=== PATIENT | male | born 1960 | race Caucasian/White ===

== ENCOUNTER 2017-11-19 10:02 | Inpatient (IN) ==
[2017-11-19] MEDS ORDERED: ceFAZolin 2 GM Premix Inj 2 GM/50 ML PIGGYBACK IV.SIG ONE ×2 (10:07→11:00)
[2017-11-19] MEDS ORDERED: Diphtheria/Tetanus/Pertussis Vaccine Inj 0.5 ML Syringe IM ONE (10:07)
[2017-11-19 10:29] LABS: Baso # (Auto) 0.1 th/mm3 (0.0-0.2); Baso % (Auto) 0.4 % (0.0-2.0); Eos # (Auto) 0.3 th/mm3 (0.0-0.4); Eos % (Auto) 2.9 % (0.0-4.0); Hematocrit 36.1 % (39.0-51.0); Hemoglobin 11.9 gm/dL (13.0-17.0); Lymph # (Auto) 5.9 th/mm3 (1.0-4.8); Lymph % (Auto) 48.7 % (9.0-44.0); Mean Corpuscular HGB Conc 32.9 % (32.0-36.0); Mean Corpuscular Hemoglobin 29.5 pg (27.0-34.0); Mean Corpuscular Volume 89.8 fL (80.0-100.0); Mean Platelet Volume 6.7 fL (7.0-11.0); Mono # (Auto) 0.9 th/mm3 (0.0-0.9); Mono % (Auto) 7.3 % (0.0-8.0); Neut # (Auto) 4.9 th/mm3 (1.8-7.7); Neut % (Auto) 40.7 % (16.0-70.0); Platelet Count 230 th/mm3 (150-450); Red Blood Count 4.02 mil/mm3 (4.50-5.90); Red Cell Distribution Width 15.5 % (11.6-17.2)
[2017-11-19 10:41] LABS: Activated Partial Thrombo Time 28.2 sec (24.3-30.1); INR 1.1 Ratio; Prothrombin Time 10.8 sec (9.8-11.6)
[2017-11-19] MEDS ORDERED: fentaNYL Citrate Inj 250 MCG/5 ML Ampul ONE (10:42)
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
[2017-11-19] MEDS ORDERED: Phenylephrine/NS 1000 MCG/10ML Syringe IV.PUSH ONE (10:51)
[2017-11-19] MEDS ORDERED: Lidocaine PF 1% Inj 5 ML Syringe INFILTRATN ONE (10:51)
[2017-11-19] MEDS ORDERED: Succinylcholine Inj 100 MG/5 ML Syringe IV.PUSH ONE (10:51)
[2017-11-19] MEDS ORDERED: Sodium Chlor 0.9% Inj 500 ML IV.SIG ONE (10:51)
[2017-11-19] MEDS ORDERED: Neostigmine Inj 5 MG/5 ML Syringe IV.PUSH ONE (10:51)
[2017-11-19] MEDS ORDERED: Glycopyrrolate Inj 1 MG/5 ML Syringe IV.PUSH ONE (10:51)
[2017-11-19] MEDS ORDERED: Sodium Chlor 0.9% Inj 250 ML IV.SIG ONE (10:51)
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
[2017-11-19 10:57] LABS: Eosinophils 3 % (0-4); Lymphocytes 33 % (9-44); Monocytes 4 % (0-8)
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
[2017-11-19 10:58] LABS: Platelet Estimate Normal (Normal); Platelet Morphology Normal (Normal)
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
[2017-11-19 11:29] LABS: ABG Base Excess -2.3 mmol/L (-2-2); ABG PCO2 48 mmHg (38-42); ABG PO2 261 mmHG (61-120)
[2017-11-19] MEDS ORDERED: Bupivacaine/Epinephrine Inj 0.25% 50 ML Vial ONE (11:38)
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
[2017-11-19] MEDS ORDERED: Post-op Orders (for Pharmacy) OTHER STA (11:54)
[2017-11-19] MEDS ORDERED: Promethazine 25 MG Supp RECTAL PRN (11:54)
[2017-11-19] MEDS ORDERED: Lidocaine PF 1% Inj 5 ML Vial ONE (11:54)
[2017-11-19] MEDS ORDERED: Bisacodyl 10 MG Supp RECTAL PRN ×2 (11:54→14:17)
[2017-11-19] MEDS ORDERED: Morphine Inj 4 MG/ML Vial IV.PUSH PRN (11:54)
[2017-11-19] MEDS ORDERED: Bupivacaine PF 0.5% Inj 30 ML Vial ONE (11:54)
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
[2017-11-19] MEDS ORDERED: Post-op Orders (for Pharmacy) OTHER ONE (14:17)
[2017-11-19] MEDS ORDERED: Naloxone Inj 0.4 MG/ML Vial IV.PUSH PRN (14:17)
[2017-11-19] MEDS ORDERED: Clindamycin 600 mg/NS Premix 600 MG/50 ML PIGGYBACK IV.SIG SCH (14:30)
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
[2017-11-19] MEDS ORDERED: Vancomycin Inj 1,000 MG in Sodium Chlor 0.9% Inj 250 ML IV.SIG SCH (15:00)
[2017-11-19 15:25] LABS: Hematocrit 24.3 % (39.0-51.0); Hemoglobin 8.2 gm/dL (13.0-17.0); Mean Corpuscular HGB Conc 33.7 % (32.0-36.0); Mean Corpuscular Hemoglobin 30.2 pg (27.0-34.0); Mean Corpuscular Volume 89.8 fL (80.0-100.0); Mean Platelet Volume 6.4 fL (7.0-11.0); Platelet Count 111 th/mm3 (150-450); Red Blood Count 2.71 mil/mm3 (4.50-5.90); Red Cell Distribution Width 14.4 % (11.6-17.2); White Blood Count 4.7 th/mm3 (4.0-11.0)
[2017-11-19] MEDS: Sod Chloride 0.9% Inj 1,000 ML IV.CONT SCH ×2 (16:05→20:36)
[2017-11-19] MEDS: Gentamicin/NS 80 mg Premix 100 ML IV.SIG SCH ×2 (17:19→18:06)
[2017-11-19] MEDS: ceFAZolin Inj 2,000 MG in Sodium Chlor 0.9% Inj 80 ML IV.SIG SCH (17:19)
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
[2017-11-19] MEDS: Senna/Docusate Sodium 8.6/50 MG Tablet PO SCH (20:36)
[2017-11-19] MEDS ORDERED: Senna/Docusate Sodium 8.6/50 MG Tablet PO SCH (21:00)
[2017-11-19] MEDS: HYDROmorphone PF Inj 2 MG/ML Vial IV.PUSH PRN (22:09)
[2017-11-20] MEDS: Sod Chloride 0.9% Inj 1,000 ML IV.CONT SCH ×3 (00:49→11:00)
[2017-11-20] MEDS: ceFAZolin Inj 2,000 MG in Sodium Chlor 0.9% Inj 80 ML IV.SIG SCH ×3 (02:00→17:23)
[2017-11-20] MEDS: Gentamicin/NS 80 mg Premix 100 ML IV.SIG SCH ×3 (03:00→20:19)
[2017-11-20 04:54] LABS: Baso % (Auto) 0.5 % (0.0-2.0); Eos % (Auto) 0.1 % (0.0-4.0); Hematocrit 25.7 % (39.0-51.0); Hemoglobin 8.8 gm/dL (13.0-17.0); Lymph # (Auto) 1.1 th/mm3 (1.0-4.8); Lymph % (Auto) 17.9 % (9.0-44.0); Mean Corpuscular HGB Conc 34.4 % (32.0-36.0); Mean Corpuscular Hemoglobin 30.6 pg (27.0-34.0); Mean Platelet Volume 6.8 fL (7.0-11.0); Mono # (Auto) 0.3 th/mm3 (0.0-0.9); Mono % (Auto) 5.2 % (0.0-8.0); Neut # (Auto) 4.5 th/mm3 (1.8-7.7); Neut % (Auto) 76.3 % (16.0-70.0); Platelet Count 103 th/mm3 (150-450); Red Blood Count 2.89 mil/mm3 (4.50-5.90); Red Cell Distribution Width 14.9 % (11.6-17.2); White Blood Count 5.9 th/mm3 (4.0-11.0)
[2017-11-20 05:27] LABS: Albumin 2.2 g/dL (3.4-5.0); Anion Gap 7 meq/L (5-15); Aspartate Aminotransferase 47 U/L (15-37); Blood Urea Nitrogen 6 mg/dL (7-18); Calcium 7.4 mg/dL (8.5-10.1); Carbon Dioxide 24.6 meq/L (21.0-32.0); Chloride 107 meq/L (98-107); Glomerular Filtration Rate Greater Than 89 mL/min (>89); Glucose,Random 140 mg/dL (74-106); Potassium 4.3 meq/L (3.5-5.1); Sodium 139 meq/L (136-145)
[2017-11-20 05:28] LABS: Alanine Aminotransferase 18 U/L (12-78)
[2017-11-20 05:33] LABS: Alkaline Phosphatase 122 U/L (45-117); Total Protein 6.4 g/dL (6.4-8.2)
--- NOTE | 2017-11-20 07:06 | P.PNOP ---
Subjective Interval history: POD 1 s/p Left Above elbow Amputation doing well. states pain controlled. resting comfortably Physical Exam Vital signs: Vital Signs 11/19/17 12:39 11/19/17 12:45 11/19/17 13:00 Temperature 96.1 F L Pulse Rate 98 H 100 H 97 H Respiratory Rate 20 19 18 Blood Pressure 120/59 L 120/56 L 105/55 L Pulse Oximetry 100 100 99 11/19/17 13:15 11/19/17 14:00 11/19/17 16:00 Temperature 98.2 F 97.6 F 97.5 F L Pulse Rate 96 H 91 H 88 Respiratory Rate 15 11 L 13 Blood Pressure 99/53 L 102/49 L 95/67 L Pulse Oximetry 99 100 100 11/19/17 16:48 11/19/17 17:10 11/19/17 18:00 Temperature 98.7 F 98.7 F Pulse Rate 90 79 Respiratory Rate 12 12 Blood Pressure 87/52 L 91/62 L Pulse Oximetry 98 99 11/19/17 20:00 11/19/17 20:56 11/20/17 00:00 Temperature 99.0 F 98.7 F Pulse Rate 74 68 Respiratory Rate 11 L Blood Pressure 102/59 L 109/50 L Pulse Oximetry 100 99 100 11/20/17 04:00 Temperature 98.9 F Pulse Rate 72 Respiratory Rate 9 L Blood Pressure 99/58 L Pulse Oximetry 100 Intake & Output 11/19/17 11/20/17 11/20/17 18:59 06:59 18:59 Intake Total 6150 / 6150 2300 / 2300 Output Total 430 / 430 100 / 100 Balance 5720 / 5720 2200 / 2200 Weight 79.4 kg Intake: IV 150 / 150 2300 / 2300 NS Inj 1,000 ML @ 100 mls/hr IV 1999 / 1999 .CONT .Q10H [facility] Rx#:[id number] Gentamicin/NS 80 mg Premix 100 200 / 200 ML @ 200 mls/hr IV.SIG Q8H [facility] Rx#:[id number] Ancef 2 GM Premix Inj 2 gm In 50 / 50 50 ml @ 100 mls/hr IV.SIG ONCE ONE Rx#:[id number] Ancef Inj 2,000 MG In NS Inj 80 100 / 100 100 / 100 ML @ 200 mls/hr IV.SIG Q8H [facility] Rx#:[id number] Anesthesia Amount 5600 / 5600 Intake (Blood Product) Amt 400 / 400 Rbc As-3 Leukoreduced Unit 400 / 400 [id number] Output: Estimated Blood Loss 400 / 400 Urine Amount (Catheter) 100 / 100 Condom 100 / 100 Wound Drainage 30 30 # 1 Left Arm ALEX Drain Other: # Voids 2 Weight On Admission 79.4 kg Narrative: LUE: dressings clean and dry. intact. +drain - Urinary Catheter Management Condom Cath placed during this visit: no Results - Labs CBC & Chem 7: 11/20/17 04:29 11/20/17 04:29 Laboratory Results - last 24 hr 11/19/17 11/19/17 11/19/17 10:08 10:08 10:08 WBC 12.0 H RBC 4.02 L Hgb 11.9 L POC Hgb (Calc) 12.2 L Hct 36.1 L POC Hct 36.0 L MCV 89.8 MCH 29.5 MCHC 32.9 RDW 15.5 Plt Count 230 MPV 6.7 L Prelim Diff (Auto) Slide review pending Neut % (Auto) 40.7 Lymph % (Auto) 48.7 H Dewitt % (Auto) 7.3 Eos % (Auto) 2.9 Baso % (Auto) 0.4 Neut # (Auto) 4.9 Lymph # (Auto) 5.9 H Dewitt # (Auto) 0.9 Eos # (Auto) 0.3 Baso # (Auto) 0.1 WBC Differential Manual diff final Seg Neuts % (Manual) 59 Lymphocytes % (Manual) 33 Monocytes % (Manual) 4 Eosinophils % (Manual) 3 Basophils % (Manual) 1 Abs Neuts (Manual) 7.1 Differential Comment . Platelet Estimate Normal Platelet Morphology Normal PT 10.8 INR 1.1 APTT 28.2 Puncture Site Patient Temperature O2 Saturation ABG pH ABG pCO2 ABG pO2 ABG HCO3 ABG O2 Content ABG Base Excess ABG Methemoglobin Hemoglobin Carboxyhemoglobin O2 Delivery Device Inspired O2 Critical Value POC Sodium 138 Sodium POC Potassium 3.5 L Potassium POC Chloride 100 L Chloride Carbon Dioxide Anion Gap POC BUN 4 L BUN Creatinine POC Creatinine 0.6 Estimated GFR POC Glucose 133 H Random Glucose Calcium Prot Corrected Calcium Total Bilirubin AST ALT Alkaline Phosphatase Total Protein Albumin Blood Type Antibody Screen MTS Gel Crossmatch Bld Prod Order Comment 11/19/17 11/19/17 11/19/17 10:08 10:08 10:08 WBC RBC Hgb POC Hgb (Calc) Hct POC Hct MCV MCH MCHC RDW Plt Count MPV Prelim Diff (Auto) Neut % (Auto) Lymph % (Auto) Dewitt % (Auto) Eos % (Auto) Baso % (Auto) Neut # (Auto) Lymph # (Auto) Dewitt # (Auto) Eos # (Auto) Baso # (Auto) WBC Differential Seg Neuts % (Manual) Lymphocytes % (Manual) Monocytes % (Manual) Eosinophils % (Manual) Basophils % (Manual) Abs Neuts (Manual) Differential Comment Platelet Estimate Platelet Morphology PT INR APTT Puncture Site Patient Temperature O2 Saturation ABG pH ABG pCO2 ABG pO2 ABG HCO3 ABG O2 Content ABG Base Excess ABG Methemoglobin Hemoglobin Carboxyhemoglobin O2 Delivery Device Inspired O2 Critical Value POC Sodium Sodium POC Potassium Potassium POC Chloride Chloride Carbon Dioxide Anion Gap POC BUN BUN Creatinine POC Creatinine Estimated GFR POC Glucose Random Glucose Calcium Prot Corrected Calcium Total Bilirubin AST ALT Alkaline Phosphatase Total Protein Albumin Blood Type O Positive Antibody Screen Negative MTS Gel Crossmatch See Detail See Detail See Detail Bld Prod Order Comment 11/19/17 11/19/17 11/20/17 11:20 15:00 04:29 WBC 4.7 D 5.9 RBC 2.71 L 2.89 L Hgb 8.2 L D 8.8 L POC Hgb (Calc) Hct 24.3 L 25.7 L POC Hct MCV 89.8 89.0 MCH 30.2 30.6 MCHC 33.7 34.4 RDW 14.4 14.9 Plt Count 111 L D 103 L MPV 6.4 L 6.8 L Prelim Diff (Auto) Neut % (Auto) 76.3 H Lymph % (Auto) 17.9 Dewitt % (Auto) 5.2 Eos % (Auto) 0.1 Baso % (Auto) 0.5 Neut # (Auto) 4.5 Lymph # (Auto) 1.1 Dewitt # (Auto) 0.3 Eos # (Auto) 0.0 Baso # (Auto) 0.0 WBC Differential . Seg Neuts % (Manual) Lymphocytes % (Manual) Monocytes % (Manual) Eosinophils % (Manual) Basophils % (Manual) Abs Neuts (Manual) Differential Comment Auto diff final Platelet Estimate Platelet Morphology PT INR APTT Puncture Site Art line Patient Temperature 98.6 O2 Saturation 97 ABG pH 7.30 L ABG pCO2 48 H ABG pO2 261 H ABG HCO3 23 ABG O2 Content 14.5 ABG Base Excess -2.3 L ABG Methemoglobin 1.3 Hemoglobin 10.2 L Carboxyhemoglobin 1.5 O2 Delivery Device Ventilator Inspired O2 50 Critical Value No POC Sodium Sodium POC Potassium Potassium POC Chloride Chloride Carbon Dioxide Anion Gap POC BUN BUN Creatinine POC Creatinine Estimated GFR POC Glucose Random Glucose Calcium Prot Corrected Calcium Total Bilirubin AST ALT Alkaline Phosphatase Total Protein Albumin Blood Type Antibody Screen MTS Gel Crossmatch Bld Prod Order Comment 11/20/17 04:29 WBC RBC Hgb POC Hgb (Calc) Hct POC Hct MCV MCH MCHC RDW Plt Count MPV Prelim Diff (Auto) Neut % (Auto) Lymph % (Auto) Dewitt % (Auto) Eos % (Auto) Baso % (Auto) Neut # (Auto) Lymph # (Auto) Dewitt # (Auto) Eos # (Auto) Baso # (Auto) WBC Differential Seg Neuts % (Manual) Lymphocytes % (Manual) Monocytes % (Manual) Eosinophils % (Manual) Basophils % (Manual) Abs Neuts (Manual) Differential Comment Platelet Estimate Platelet Morphology PT INR APTT Puncture Site Patient Temperature O2 Saturation ABG pH ABG pCO2 ABG pO2 ABG HCO3 ABG O2 Content ABG Base Excess ABG Methemoglobin Hemoglobin Carboxyhemoglobin O2 Delivery Device Inspired O2 Critical Value POC Sodium Sodium 139 POC Potassium Potassium 4.3 POC Chloride Chloride 107 Carbon Dioxide 24.6 Anion Gap 7 POC BUN BUN 6 L Creatinine 0.65 POC Creatinine Estimated GFR Greater than 89 POC Glucose Random Glucose 140 H Calcium 7.4 L* Prot Corrected Calcium 7.8 L Total Bilirubin 0.9 AST 47 H ALT 18 Alkaline Phosphatase 122 H Total Protein 6.4 Albumin 2.2 L Blood Type Antibody Screen MTS Gel Crossmatch Bld Prod Order Comment - Imaging Impressions Radius/Ulna X-Ray 11/19/17 00:00 CONCLUSION: Fracture dislocation at the elbow and wrist with fractures of the distal humerus , proximal radius and ulna and distal radius and ulna. This is an incomplete evaluation of the hand. Chest X-Ray 11/19/17 10:05 CONCLUSION: Right lung base is obscured by over lying hand. Fractured right clavicle No evidence of pneumothorax or cardiac mediastinal injury. Pelvis X-Ray 11/19/17 10:05 CONCLUSION: Negative for fracture or dislocation Abdomen/Pelvis CT 11/19/17 10:14 CONCLUSION: 1. Extensive vascular calcifications vena cava filter 2. Moderate motion artifact. No definite solid organ injury. Chest CT 11/19/17 10:14 CONCLUSION: 1. Negative for acute traumatic injury. 2. There is no pneumothorax. 3. Minimal nonspecific mediastinal adenopathy. Cervical Spine CT 11/19/17 10:15 CONCLUSION: 1. Degenerative changes as above without fracture. The most significant degenerative changes are at C5-C6 and C6-C7. Head CT 11/19/17 10:15 CONCLUSION: 1. Negative for acute process . 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 Acute pain exception. This patient has normal, predicted, physiological, and time limited response to an adverse mechanical stimulus associated with surgery, trauma, or acute illness as described in my notes. There is a lack of alternative treatment options other than to include the prescribed narcotic treatment for this condition.
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
[2017-11-20] MEDS: HYDROmorphone PF Inj 2 MG/ML Vial IV.PUSH PRN ×3 (08:28→17:27)
[2017-11-20] MEDS: Senna/Docusate Sodium 8.6/50 MG Tablet PO SCH ×2 (10:23→21:54)
[2017-11-20] MEDS: Enoxaparin Inj 40 MG/0.4 ML Syringe SQ SCH (12:41)
[2017-11-20] MEDS: Gabapentin 300 MG Capsule PO SCH ×2 (12:46→17:25)
[2017-11-20] MEDS: Lisinopril 5 MG Tablet PO SCH (12:46)
--- NOTE | 2017-11-20 13:30 | ECG ---
Date Performed: 11/19/2017 Time Performed: 16:36:42 PTAGE: 89 years EKG: Sinus rhythm . Possible WPW pattern Generalized low QRS voltages Abnormal ECG NO PREVIOUS TRACING DOCTOR: Negro Coombs Interpretating Date/Time 11/20/2017 13:28:54
--- NOTE | 2017-11-20 14:45 | ECHRPT ---
Indication: cardiomyopathy CONCLUSIONS Normal left ventricular size. Mild concentric left ventricular hypertrophy. The left ventricular systolic function is severely reduced with an estimated ejection fraction in th e range of 30-35%. Due to limited echocardiographic window visualization, regional wall motion abnormalities cannot be excluded. There is noted akinesis of the LV apex, mid to apical septam, and mid to apical anterior w all with otherwise global hypokinesis of visualized LV wall segments. There is a possible left ventricular apical thrombus noted. Definity contrast enhanced echocardiogra m versus CT imaging recommended for further evaluation. Mild mitral valve regurgitation. BP: / HR: Rhythm: MEASUREMENTS (Male / Female) Normal Values Technical Quality:Fair 2D ECHO LV Diastolic Diameter PLAX 5.7 cm 4.2 - 5.9 / 3.9 - 5.3 cm LV Systolic Diameter PLAX 4.7 cm IVS Diastolic Thickness 1.4 cm 0.6 - 1.0 / 0.6 - 0.9 cm LVPW Diastolic Thickness 1.2 cm 0.6 - 1.0 / 0.6 - 0.9 cm LV Relative Wall Thickness 0.5 LVOT Diameter 2.2 cm Aortic Root Diameter 2.6 cm LA Systolic Diameter LX 3.9 cm 3.0 - 4.0 / 2.7 - 3.8 cm M-MODE AV Cusp Separation MM 2.3 cm DOPPLER AV Peak Velocity 120.0 cm/s AV Peak Gradient 5.8 mmHg LVOT Peak Velocity 94.3 cm/s LVOT Peak Gradient 3.6 mmHg AV Area Cont Eq pk 3.0 cm Mitral E Point Velocity 67.1 cm/s Mitral A Point Velocity 64.2 cm/s Mitral E to A Ratio 1.0 LV E' Lateral Velocity 13.7 cm/s Mitral E to LV E' Lateral Ratio 4.9 LV E' Septal Velocity 10.0 cm/s Mitral E to LV E' Septal Ratio 6.7 TR Peak Velocity 80.5 cm/s TR Peak Gradient 2.6 mmHg Right Atrial Pressure 5.0 mmHg Pulmonary Artery Systolic Pressu 7.6 mmHg Right Ventricular Systolic Press 7.6 mmHg PV Peak Velocity 81.4 cm/s PV Peak Gradient 2.7 mmHg FINDINGS LEFT VENTRICLE Normal left ventricular size. Mild concentric left ventricular hypertrophy. The left ventricular systolic function is severely reduced with an estimated ejection fraction in th e range of 30-35%. There is noted akinesis of the LV apex, mid to apical septam, and mid to apical anterior wall with o therwise global hypokinesis of visualized LV wall segments. There is a possible left ventricular apical thrombus noted. RIGHT VENTRICLE Normal right ventricular size and systolic function. LEFT ATRIUM The left atrial size is normal. RIGHT ATRIUM The right atrial size is normal. ATRIAL SEPTUM Normal atrial septal thickness without atrial level shunting by limited color doppler interrogation. AORTA The aortic root and proximal ascending aorta are normal in size on limited imaging. MITRAL VALVE Structurally normal mitral valve. Mild thickening of the mitral valve leaflets. Mild mitral valve regurgitation. AORTIC VALVE Trileaflet aortic valve. Aortic valve sclerosis is present. No aortic valve stenosis or regurgitation. TRICUSPID VALVE Structurally normal tricuspid valve. No tricuspid valve stenosis or regurgitation. PULMONARY VALVE No pulmonary valve regurgitation or stenosis. VESSELS The inferior vena cava is normal in size. PERICARDIUM No pericardial effusion. Jose Moore (Electronically Signed) Final Date:20 November 2017 14:44
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
[2017-11-20] MEDS ORDERED: Dextrose 50% in Water 50 ML Vial IV.PUSH PRN (16:16)
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
[2017-11-20] MEDS: Insulin NovoLOG Aspart Correctional Sugar Inj SQ SCH ×2 (19:19→21:56)
[2017-11-20] MEDS: Furosemide 40 MG Tablet PO SCH (21:53)
[2017-11-21] MEDS: HYDROmorphone PF Inj 2 MG/ML Vial IV.PUSH PRN ×5 (01:09→16:40)
[2017-11-21] MEDS: ceFAZolin Inj 2,000 MG in Sodium Chlor 0.9% Inj 80 ML IV.SIG SCH ×3 (01:10→17:13)
[2017-11-21] MEDS: Gentamicin/NS 80 mg Premix 100 ML IV.SIG SCH ×2 (03:00→11:09)
--- NOTE | 2017-11-21 06:59 | P.PNOP ---
Subjective Interval history: POD 2 s/p amputation of left arm reports significant pain overnight. patient on chronic suboxone outpatient Physical Exam Vital signs: Vital Signs 11/20/17 08:00 11/20/17 08:15 11/20/17 08:16 Temperature 98.3 F Pulse Rate 62 Respiratory Rate 13 Blood Pressure 103/56 L Pulse Oximetry 100 100 100 11/20/17 09:00 11/20/17 12:00 11/20/17 16:00 Temperature 97.6 F 98.3 F Pulse Rate 62 72 84 Respiratory Rate 13 12 Blood Pressure 97/59 L 135/62 Pulse Oximetry 100 100 11/20/17 20:00 11/20/17 20:15 11/20/17 22:00 Temperature 98.4 F Pulse Rate 69 66 Respiratory Rate 10 L Blood Pressure 103/53 L Pulse Oximetry 100 100 11/21/17 00:00 11/21/17 02:00 11/21/17 04:00 Temperature 98.2 F 98 F Pulse Rate 70 65 73 Respiratory Rate 10 L 12 Blood Pressure 95/55 L 92/55 L Pulse Oximetry 98 11/21/17 06:00 Temperature Pulse Rate 76 Respiratory Rate Blood Pressure Pulse Oximetry Intake & Output 11/20/17 11/20/17 11/21/17 06:59 18:59 06:59 Intake Total 2300 / 2300 600 / 600 2730 / 2730 Output Total 100 / 100 3510 / 3510 Balance 2200 / 2200 600 / 600 -780 / -780 Intake: IV 2300 / 2300 600 / 600 300 / 300 NS Inj 1,000 ML @ 50 mls/hr IV. 1999 / 1999 400 / 400 CONT .Q20H NASEEM Rx#:[id number] Gentamicin/NS 80 mg Premix 100 200 / 200 100 / 100 100 / 100 ML @ 200 mls/hr IV.SIG Q8H NASEEM Rx#:[id number] Ancef Inj 2,000 MG In NS Inj 80 100 / 100 100 / 100 200 / 200 ML @ 200 mls/hr IV.SIG Q8H NASEEM Rx#:[id number] Oral 1230 / 1230 Other 1200 / 1200 Output: Urine 2100 / 2100 Estimated Blood Loss 200 / 200 Urine Amount (Catheter) 100 / 100 1150 / 1150 Condom 100 / 100 1150 / 1150 Wound Drainage 60 / 60 # 1 Left Arm ALEX Drain 60 / 60 Other: # Incontinent Voids 1 # Bowel Movements 0 Narrative: LUE: dressing clean and dry. intact. +Drain - Urinary Catheter Management Condom Cath placed during this visit: no Results - Labs CBC & Chem 7: 11/21/17 04:27 11/20/17 04:29 Laboratory Results - last 24 hr 11/20/17 11/20/17 11/20/17 15:44 17:34 21:49 Hgb Hct POC Glucose 185 H 144 H 158 H 11/21/17 04:27 Hgb 8.0 L Hct 24.0 L POC Glucose Assessment and Plan - Assessment and Plan 1) Left Arm Traumatic near amputation with conversion to above elbow amputation - POD 2 -maintain dressings and drain -NWB -will change dressing POD 3 at bedside -due to pain, will change pain scale inpatient to percocet 7.5 scale 3-6, percocet 10 scale 7-10, dilaudid 2mg for breakthrough -patient on chronic suboxone outpatient from pain mgmt. will give one time Rx of percocet 10 for DC and then refer to pain mgmt for further refills -f/u with nayana or DIANE in 2 weeks E-FORE Prescription Drug Monitoring Database has been queried and verified prior to prescribing the controlled substance. Acute pain exception. This patient has normal, predicted, physiological, and time limited response to an adverse mechanical stimulus associated with surgery, trauma, or acute illness as described in my notes. There is a lack of alternative treatment options other than to include the prescribed narcotic treatment for this condition.
[2017-11-21] MEDS: Sod Chloride 0.9% Inj 1,000 ML IV.CONT SCH (09:08)
[2017-11-21] MEDS: Enoxaparin Inj 40 MG/0.4 ML Syringe SQ SCH (09:09)
[2017-11-21] MEDS: Furosemide 40 MG Tablet PO SCH ×2 (09:09→20:43)
[2017-11-21] MEDS: Gabapentin 300 MG Capsule PO SCH ×3 (09:09→17:12)
[2017-11-21] MEDS: Senna/Docusate Sodium 8.6/50 MG Tablet PO SCH ×2 (09:10→20:43)
[2017-11-21] MEDS: Lisinopril 5 MG Tablet PO SCH (09:10)
[2017-11-21] MEDS: Insulin NovoLOG Aspart Correctional Sugar Inj SQ SCH ×4 (09:12→20:58)
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
[2017-11-22] MEDS: ceFAZolin Inj 2,000 MG in Sodium Chlor 0.9% Inj 80 ML IV.SIG SCH ×2 (02:28→12:45)
[2017-11-22] MEDS: HYDROmorphone PF Inj 2 MG/ML Vial IV.PUSH PRN ×3 (02:37→12:43)
[2017-11-22] MEDS: oxyCODONE/Acetaminophen 10/325 Tablet PO PRN ×2 (04:30→08:02)
[2017-11-22 06:02] LABS: Baso % (Auto) 0.1 % (0.0-2.0); Eos # (Auto) 0.1 th/mm3 (0.0-0.4); Hematocrit 27.7 % (39.0-51.0); Hemoglobin 9.4 gm/dL (13.0-17.0); Lymph # (Auto) 2.3 th/mm3 (1.0-4.8); Lymph % (Auto) 37.4 % (9.0-44.0); Mean Corpuscular HGB Conc 33.9 % (32.0-36.0); Mean Corpuscular Volume 88.6 fL (80.0-100.0); Mean Platelet Volume 6.9 fL (7.0-11.0); Mono # (Auto) 0.2 th/mm3 (0.0-0.9); Mono % (Auto) 3.9 % (0.0-8.0); Neut # (Auto) 3.4 th/mm3 (1.8-7.7); Neut % (Auto) 56.6 % (16.0-70.0); Platelet Count 138 th/mm3 (150-450); Red Blood Count 3.13 mil/mm3 (4.50-5.90); Red Cell Distribution Width 14.7 % (11.6-17.2); White Blood Count 6.1 th/mm3 (4.0-11.0)
[2017-11-22 06:35] LABS: Alanine Aminotransferase 10 U/L (12-78); Albumin 2.4 g/dL (3.4-5.0); Alkaline Phosphatase 149 U/L (45-117); Anion Gap 10 meq/L (5-15); Aspartate Aminotransferase 38 U/L (15-37); Blood Urea Nitrogen 5 mg/dL (7-18); Calcium 7.8 mg/dL (8.5-10.1); Carbon Dioxide 32.5 meq/L (21.0-32.0); Chloride 97 meq/L (98-107); Glomerular Filtration Rate Greater Than 89 mL/min (>89); Glucose,Random 138 mg/dL (74-106); Potassium 3.7 meq/L (3.5-5.1); Sodium 139 meq/L (136-145); Total Protein 7.3 g/dL (6.4-8.2)
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
[2017-11-22] MEDS: Senna/Docusate Sodium 8.6/50 MG Tablet PO SCH ×2 (08:04→21:51)
[2017-11-22] MEDS: Furosemide 40 MG Tablet PO SCH ×2 (08:04→21:50)
[2017-11-22] MEDS: Gabapentin 300 MG Capsule PO SCH ×3 (08:04→21:48)
[2017-11-22] MEDS: Insulin NovoLOG Aspart Correctional Sugar Inj SQ SCH ×4 (08:07→21:57)
[2017-11-22] MEDS: Lisinopril 5 MG Tablet PO SCH (08:08)
[2017-11-22] MEDS ORDERED: Chlorhexidine Gluconate 2% 1 Pack (2 Cloths) TOPICAL SCH (08:45)
[2017-11-22] MEDS ORDERED: Mupirocin 2% Nasal Oint Topical Syringe EACH NARE SCH (08:45)
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
[2017-11-22] MEDS: Enoxaparin Inj 40 MG/0.4 ML Syringe SQ SCH (12:16)
[2017-11-22] MEDS ORDERED: Vancomycin Inj 1,000 MG in Sodium Chlor 0.9% Inj 250 ML IV.SIG SCH (16:00)
[2017-11-22] MEDS ORDERED: ceFAZolin 2 GM Premix Inj 2 GM/50 ML PIGGYBACK IV.SIG SCH (16:00)
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
[2017-11-22] MEDS ORDERED: Sod Chloride 0.9% Inj 1,000 ML IV.SIG ONE (17:45)
[2017-11-22] MEDS ORDERED: Sodium Chlor 0.9% Inj 250 ML ONE (18:21)
--- NOTE | 2017-11-22 19:07 | CATHPROC ---
Patient Name: Iggy Calle Study #: [id number] Initial MD: Martin Rodriguez Date of : 1960 Study Date: 11/22/2017 Cardiac Catheterization Report 11/23/2017 4:10:47 PM Financial #: [id number] 1 of 9 Patient Name: Iggy Calle Study #: [id number] Initial MD: Martin Rodriguez Date of : 1960 Study Date: 11/22/2017 Entire Case Report Patient Information Patient Name Iggy Calle Date of 1960 Age 57 years Financial # [id number] Gender M AlternateID Lab Number 6 Room Number 1624 Height (in) 68.0 Height (cm) 172.7 BSA 1.94 Weight (lbs) 175.7 Weight (kg) 79.9 Patient Address/Phone Number Home Address [facility] Home Phone Number [address] [address] Study Information Study Number Admission Scheduled Start Study Start [id number] Nov 19 2017 10:41AM 11/22/2017 Nov 22 2017 5:16PM Electra Service Cardiac Pacer/ICD Admit Source Facility Department Emergency department [facility] Department Manager Physician and Clinical Staff Initial Martni Diaz Picture Framer Pedrito Coyne,RT(R) Other Anesthesia, CRAB PICKER Recorder Adali Singh,PROMISE Recorder Rebeka Perry BSN Recorder Gladys Farmer RN Scrub Ashely Velasquez,DAYNA Procedures Performed Procedure Lead Insertion 11/23/2017 4:10:47 PM Financial #: [id number] 2 of 9 Patient Name: Iggy Calle Study #: [id number] Initial MD: Martin Rodriguez Date of : 1960 Study Date: 11/22/2017 Equipment Time Manager Community Relations Description Size Mfg Part Number Used/Scraped 18:47 BIOTRONIK DEFIBRILLATOR, ILIVIA 7 DR-T [id number] Used 18:37 BIOTRONIK LEAD, PLEXA PRO-MRI SD /18 [id number] Used 18:40 BIOTRONIK LEAD, SOLIA 60 53 PRO MRI * [id number] Used [id number] 17:20 MEDLINE Carnival BLANKET,WARM AIR CCL * Used *[id number] TP-1103 17:20 MEDLINE INDUSTRIES SUTURE, STRIP PLUS 1/2" * Used *[id number] 17:20 MEDLINE PACER ADHESIVE, MASTISOL 2/3CC 2/3CC 0523-48 Used 17:20 MEDLINE PACER SANCHEZ, LIMB * 2530 *[id number] Used [id number] 17:20 MEDLINE PACER PACK, PACER CUSTOM * Used *[id number] 17:20 MEDLINE PACER PEN, SKIN DUAL W/ RULER * Used *[id number] 18:02 docBeat PACER SAFE SHEATH, FR8, 13CM FR 8 CLS-1008 Used 18:42 docBeat PACER SAFE SHEATH, FR8, 13CM FR 8 CLS-1008 Used 18:16 Needle Sponge Count 2 2 Used 18:16 Needle Sponge Count 2 22 Used 19:02 Needle Sponge Count 3 3 Used 18:16 Needle Sponge Count 30 1 Used [id number] *62825 SUTURE, 3-0 VICRYL [SH] ([id number]) SUTURE, 3-0 VICRYL [SH] (AIA595K) SUTURE, 4-0 MONOCRYL [PS2] (Y496G) [facility] PAD, ELECTROSURGICAL 17:20 * [id number] *[id number] Used SURGICAL GROUNDING ORANGE [id number] 17:20 ZOLL [employer] SHELLI. / * Used *94062 Equipment Model, Serial, Lot Number and Expiration Data Description Model Number Serial Number Lot Number Expiration Date DEFIBRILLATOR, ILIDAMIEN 7 HUGO [id number] 04-11-2018 LEAD, PLEXA PRO-MRI [place] [id number] 05-10-2019 LEAD, SOLIA 60 53 PRO MRI [id number] 09-09-2019 11/23/2017 4:10:47 PM Financial #: [id number] 3 of 9 Patient Name: Iggy Calle Study #: [id number] Initial MD: Martin Rodriguez Date of : 1960 Study Date: 11/22/2017 Insurance Information Insurance Payor Medicare Third Constitution Party Third Constitution Party Number [facility] [place] [facility] History: Allergies Allergy Reaction No Allergy Information Available History: Risk Factors Hypertension Yes Cerebrovascular Diabetes Disease Labs Hgb (g/dl) Hct (%) WBC (l/cumm) Platelets (thousands) 11.60-17.00 35.00-51.00 4.00-11.00 150.00-450.00 9.4 27.7 6.1 138 Glucose (mg/dl) BUN (mg/dl) Creatinine (mg/dl) BUN:Creatinine (1:x) 74.00-106.00 7.00-18.00 0.50-1.30 10.00-20.00 122 5 0.8 6.3 Na (meq/l) K (meq/l) 136.00-145.00 3.50-5.10 139 3.7 INR (PTT:PT) 0.90-1.10 1.1 Medication Medication Total Dose (Bolus/Oral) Medication Total Dosage/Unit 2% XYLOCAINE 40 mL Medications (Bolus/Oral) Medication Time Given Dosage/Unit Administered By Reason 2% XYLOCAINE 11/22/2017 6:25:44 PM 40 mL Martin Rodriguez 40 mL 2% XYLOCAINE given in lab by Martin Rodriguez in Left shoulder via Subcutaneous. Ordered by Martin Rodriguez. 11/23/2017 4:10:47 PM Financial #: [id number] Patient Name: Iggy Calle Study #: [id number] Initial MD: Martin Rodriguez Date of : 1960 Study Date: 11/22/2017 Medication (Drip) Medication Time Given Dosage/Unit Concentration/Unit Diluent (ml) Solution ANCEF 11/22/2017 6:22:06 PM 2 g 2 g ANCEF given in lab by Radha, CRAB PICKER via Peripheral IV. Ordered by Martin Rodriguez. Reason: As per physicians verbal order. VANCOMYCIN DRIP 11/22/2017 5:51:50 PM 1 g 1 g VANCOMYCIN DRIP given in lab by Rebeka Perry BSN in Right Antecubital via Peripheral IV. Ordered by Martin Rodriguez. Reason: As per physicians verbal order. Initial Case Assessment Cardiovascular HR Rhythm NIBP 97 NSR 78/54 Edema Present Skin color Skin None Normal Warm Dry Circulatory - Right Pulses Dorsalis Pedis 1 Scale (0,1,2,3,4,d) Circulatory - Left Pulses Dorsalis Pedis 1 Scale (0,1,2,3,4,d) Circulatory - Lower Extremities Color Lower Right Color Lower Left Normal Normal Neurological State Oriented to time-place- Alert Moves all extremities person Respiration - General Respiration Rate SpO2 (%) (B/min) 16 99 11/23/2017 4:10:47 PM Financial #: [id number] 5 of 9 Patient Name: Iggy Calle Study #: [id number] Initial MD: Martin Rodriguez Date of : 1960 Study Date: 11/22/2017 Final Case Assessment Cardiovascular HR Rhythm NIBP Chest Pain 65 SR 124/65 0 Edema Present Skin color Skin None Normal Warm Dry Circulatory - Right Pulses Dorsalis Pedis 1 Scale (0,1,2,3,4,d) Circulatory - Left Pulses Dorsalis Pedis 1 Scale (0,1,2,3,4,d) Neurological State Oriented to time-place- Alert Moves all extremities person Respiration - General Respiration Rate SpO2 (%) O2 (lpm) (B/min) 18 100 4 Chronological Log Time Study Chronological Log 17:40:26 Patient arrived via Bed. 17:40:27 Patient Name, D.O.B, / Armband Verified By R.N. 17:40:27 Consent signed by the physician and the patient and verified by the [facility] Department Manager staff. 17:40:28 Pre-op and post- op instructions given; patient acknowledges understanding of instructions. 17:40:29 Anesthesia at bedside. Assumes care of patient. 17:40:30 Patient has been NPO for More than 6Hrs. 17:40:31 Skin Breakdown- well documented in record see EMR 17:43:34 Jacob Prominences Protected 17:45:33 Disposable Defibrillator Pads Placed On Patient. 11/23/2017 4:10:47 PM Financial #: [id number] 6 of 9 Patient Name: Iggy Calle Study #: [id number] Initial MD: Martin Rodriguez Date of : 1960 Study Date: 11/22/2017 Assessment: Initial Case, HR=97 BPM, Rhythm=NSR, NIBP=78/54 mmhg, Edema=None, Color=Normal, Ski n = Warm, Dry Right Pulses: Patrick Ped=1 Left Pulses: Patrick Ped=1 17:45:51 Lower Right Extremities: Color=Normal Lower Left Extremities: Color=Normal Neurological: State=Alert, Ox3, SANDOVAL Respiration: Resp=16 B/min, SpO2=99 % 17:47:00 2% CHLORHEXIDINE GLUCONATE WASH AND NASAL SWIPE DONE PRIOR TO PROCEDURE. 17:50:32 Patient Warmer Placed on the Table. 17:51:38 Bovie ground pad applied to: right thigh 1 g VANCOMYCIN DRIP given in lab by Rebeka Perry BSN in Right Antecubital via Periphera l IV. Ordered by 17:51:50 Martin Rodriguez. Reason: As per physicians verbal order. 17:57:45 A # 20 IV was noted in the Upper Arm (right). Grade = 0 0.9% NaCl @ KVO. 17:57:48 A # 20 IV was noted in the Antecubital (right). Grade = 0 0.9%NaCl @ KVO 17:57:50 History and physical on the chart. 17:57:52 Table restraints applied according to hospital policy 17:58:09 Reference ECG taken First Sponge And Instrument Count Done by Ashely Velasquez RCIS. 17:59:11 Hypo's: 2, Sponges: 30, Bovie/scratch: 2 Sutures: 6, Blades: 2, Instruments: 26, Syveck Patches: ~SYVECK PATCH~ Verified by AM 18:00:35 Upper Chest Prepped Times Two. 18:03:37 paged 18:03:44 MD responded 18:07:41 MD arrived. 18:10:52 A sterile drape was applied after a 5 minute prep dry time. 18:11:49 Anesthesiologist present for intubation. 2 g ANCEF given in lab by Anesthesia, CRAB PICKER via Peripheral IV. Ordered by Martin Rodriguez. Reason: As per physicians 18:22:06 verbal order. Time Out. Correct patient, procedure, procedure equipment, site and side verified with physicia n present. Time 18:24:44 concurred by MD, individual staff and CRAB PICKER. Time Out #2 - Consents verified, patient in correct position, all results are labled and displa yed, safety precautions 18:25:15 taken, antibiotics administered. Time out concurred by MD, individual staff and CRAB PICKER in procedu re 18:25:26 Case Start 18:25:44 40 mL 2% XYLOCAINE given in lab by Martin Rodriguez in Left shoulder via Subcutaneous. Ordered by Martin Rodriguez. 18:27:49 Surgical Incision Made. 18:28:16 A pocket was created at the Lt. upper chest. 18:31:05 Vascular access was obtained in the Subclav. Vein (Lft. 18:32:10 Wire inserted 18:32:51 Vascular access was obtained in the Subclav. Vein (Lft. 18:33:06 Wire inserted 18:35:49 A SAFE SHEATH, FR8, 13CM FR 8 was advanced into the Subclav. Vein (Lft using the Modified S eldinger technique. 11/23/2017 4:10:47 PM Financial #: [id number] 7 of 9 Patient Name: Iggy Calle Study #: [id number] Initial MD: Martin Rodriguez Date of : 1960 Study Date: 11/22/2017 18:36:39 A LEAD, PLEXA PRO-MRI SD 65/18 was inserted and positioned in the RV. 18:38:51 Lead placement verified under fluoroscopy 18:39:05 The RV lead impedance and threshold being tested. 18:39:23 The RV lead was sutured to the fascia. 18:42:15 A SAFE SHEATH, FR8, 13CM FR 8 was advanced into the Subclav. Vein (Lft using the Modified S eldinger technique. 18:43:28 A LEAD, SOLIA 60 53 PRO MRI * was inserted and positioned in the RA. 18:44:23 Lead placement verified under fluoroscopy 18:44:39 The Atrial lead impedance and threshold is being tested. 18:46:11 The Atrial lead was sutured to the fascia. 18:48:45 Antibiotic sponges removed from the surgical pocket. 18:49:09 A DEFIBRILLATOR, ILIVIA 7 DR-T was connected and placed in the pocket. Second Sponge And Instrument Count Done by Ashely Velasquez RCIS. 18:51:37 Hypo's: 2, Sponges: 30, Bovie/scratch: 2 Sutures: 6, Blades: 2, Instruments: 26, Syveck Patches: ~SYVECK PATCH~ Verified by AM 18:55:23 The pocket is being closed. 18:58:18 A two Joul DFT was performed. 18:58:38 PACU called. Spoke to Alexis 19:00:31 The DFT was Success at 20 Joules, 46 Ohms lead impedance and 4 SEC charge time. 19:00:49 Implant Procedure was performed. 19:00:57 A ICD Implant . (Dual) FINAL Sponge And Instrument Count Done by Ashely Velasquez RCIS. 19:01:25 Hypo's: 2, Sponges: 30, Bovie/scratch: 2 Sutures: 6, Blades: 2, Instruments: 26, Syveck Patches: ~SYVECK PATCH~ Verified by AM 19:03:40 Case End (Physician broke scrub) 19:04:50 Steri-strips and a sterile dressing applied to site. Assessment: Final Case, HR=65 BPM, Rhythm=SR, GVRS=688/65 mmhg, Chest Pain=0, Edema=None, Color =Normal, Skin = Warm, Dry Right Pulses: Patrick Ped=1 19:05:33 Left Pulses: Patrick Ped=1 Neurological: State=Alert, Ox3, SANDOVAL Respiration: Resp=18 B/min, TzN1=316 %, O2=4 lpm 19:06:10 Sterile dressing applied to site 19:06:13 No case complications noted. 19:06:14 Cine recording checked. 19:06:15 Bedside Report will be given. 19:06:16 Implantable Device card placed in patient's chart. 19:06:24 Defibrillator and ground pads removed. Skin intact. 19:10:10 Patient moved to [facility] 11/23/2017 4:10:47 PM Financial #: [id number] of Patient Name: Iggy Calle Study #: [id number] Initial MD: Martin Rodriguez Date of : 1960 Study Date: 11/22/2017 End Study - Contrast Media Used In Study Contrast Total Opened (mL) Total Used (mL) Total Wasted (mL) Unspecified 0 0 0 End Study - Maximum Contrast Load Max Contrast Load (mL) 499.1 End Study - Radiation Exposure Fluoro Time (minutes) 2.3 End Study - Patient Disposition Complications Transferred To Interventional Outcome No Telemetry Bed successful 11/23/2017 4:10:47 PM Financial #: [id number]
--- NOTE | 2017-11-22 20:25 | MP ---
cc: Martin Rodriguez MD DATE OF OPERATION: 11/22/2017 PROCEDURE: 1. Dual-chamber automated implantable cardioverter defibrillator implantation via the subclavian vein. 2. Automated implantable cardioverter defibrillator defibrillation threshold testing. OPERATIVE NOTES: The patient was brought to the operating suite in a fasting state after having signed informed consent. The left upper chest was prepped and draped as per policy and anesthetized with 1% lidocaine. A transverse incision was made inferior to the left clavicle and using blunt dissection, a subcutaneous pocket was formed onto the pectoralis fascia. Using modified Seldinger technique, central venous access was obtained via the left subclavian vein twice without difficulty. Over the more lateral guidewire, an 8-Tajik sheath was placed and through this sheath, a ventricular active fixation lead was introduced and its tip positioned in the right ventricular apex where good current of injury, stimulation threshold (0.7 volts) and sensitivity (14.2 millivolts) were demonstrated. This lead was secured into place using 2-0 silk ties down to the pectoralis fascia. Over the remaining guidewire, a 7-Tajik sheath was placed and through this sheath, an atrial active fixation lead was introduced and its tip positioned in the right atrial appendage where good current of injury, stimulation threshold (1.4 volts) and sensitivity (6.8 millivolts) were demonstrated. This lead was secured into place using 2-0 silk ties down to the pectoralis fascia. The leads were then connected to the AICD generator, which is a Biotronik Ilivia device. The leads and the generator were placed into the subcutaneous pocket, which was closed using 3-0 Vicryl interrupted stitches in 2 layers to close the subcutaneous tissue and then 4-0 Monocryl running stitch to close the subcuticular tissue. Overlapping Steri-Strips and a pressure dressing were applied. Testing of the device was also performed. Ventricular fibrillation was induced. The patient was successfully rescued with a 20 joule shock after a charge time of 4 seconds at a shock impedance of 46 ohms. There were no apparent, immediate complications. A portable chest x-ray is pending at the time of this dictation. CONCLUSIONS: 1. Status post successful chamber automated implantable cardioverter defibrillator implantation via the left subclavian vein using a Biotronik Ilivia automated implantable cardioverter defibrillator generator. 2. Status post automatic implantable cardioverter-defibrillator defibrillation threshold testing. Martin Rodriguez MD GHMaría/ct , 07:08 PM , 07:13 PM MIKEY
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
[2017-11-22] MEDS: Sod Chloride 0.9% Inj 500 ML IV.CONT SCH ×2 (21:19→21:51)
[2017-11-22] MEDS ORDERED: Sodium Chlor 0.9% Inj 500 ML IV.SIG ONE (21:30)
[2017-11-23] MEDS: Sod Chloride 0.9% Inj 500 ML IV.CONT SCH ×3 (05:59→19:53)
[2017-11-23] MEDS ORDERED: Vancomycin Inj 1,000 MG in Sodium Chlor 0.9% Inj 250 ML IV.SIG SCH (07:00)
[2017-11-23] MEDS ORDERED: Vancomycin Inj 1 GM/200 ML PIGGYBACK IV.SIG ONE (07:00)
--- NOTE | 2017-11-23 07:28 | P.PNCA ---
Subjective Interval history: Minimal incisional pain. No dyspnea, dizziness. Physical Exam Vital signs: Vital Signs 11/22/17 08:00 11/22/17 12:00 11/22/17 16:00 Temperature 98.5 F 98.4 F 98.7 F Pulse Rate 87 114 H 114 H Respiratory Rate 17 18 18 Blood Pressure 91/55 L 131/92 H 121/89 Pulse Oximetry 96 97 97 11/22/17 18:02 11/22/17 19:12 11/22/17 19:25 Temperature 98.4 F 97.6 F Pulse Rate 90 83 Respiratory Rate 16 11 L Blood Pressure 104/63 99/58 L Pulse Oximetry 97 100 100 11/22/17 19:30 11/22/17 19:45 11/22/17 19:48 Temperature 97.6 F Pulse Rate 83 87 84 Respiratory Rate 12 14 12 Blood Pressure 94/56 L 91/41 L 96/52 L Pulse Oximetry 100 100 100 11/22/17 20:00 11/22/17 20:15 11/22/17 20:30 Temperature Pulse Rate 83 92 H 86 Respiratory Rate 12 14 Blood Pressure 97/55 L 97/54 L 103/49 L Pulse Oximetry 100 100 96 11/22/17 20:45 11/22/17 20:55 11/22/17 21:00 Temperature 97.8 F 98.4 F Pulse Rate 88 83 88 Respiratory Rate 16 16 16 Blood Pressure 109/59 L 109/58 L 104/63 Pulse Oximetry 96 99 96 11/22/17 22:00 11/22/17 23:00 11/23/17 00:00 Temperature 98.4 F Pulse Rate 90 92 H 93 H Respiratory Rate 16 16 16 Blood Pressure 104/63 95/49 L 89/52 L Pulse Oximetry 100 99 99 11/23/17 01:00 11/23/17 02:00 11/23/17 03:00 Temperature 98.2 F Pulse Rate 82 78 84 Respiratory Rate 16 16 Blood Pressure 110/53 L 99/52 L Pulse Oximetry 97 95 11/23/17 04:00 11/23/17 05:00 11/23/17 06:00 Temperature Pulse Rate 84 104 H 81 Respiratory Rate Blood Pressure Pulse Oximetry Intake & Output 11/22/17 11/23/17 11/23/17 18:59 06:59 18:59 Intake Total 490 / 490 Output Total 600 / 600 575 / 575 Balance -600 / -600 -85 / -85 Weight 79.3 kg Intake: Oral 490 / 490 Output: Urine 600 / 600 575 / 575 Other: Date of Last Bowel Movement 11/19/17 - Routine Respiratory Exam Present: CTA bilaterally - Routine Cardiovascular Exam Present: RRR, S1, S2. Absent: murmur, gallop Comments: ICD site clean, dry, intact, nontender. No hematoma. - Urinary Catheter Management Condom Cath placed during this visit: no Assessment and Plan - Assessment (1) Status post implantation of automatic cardioverter/defibrillator (AICD) Code(s): Z95.810 - Presence of automatic (implantable) cardiac defibrillator Status: Acute Plan: AICD implant f/u. AICD site fine. AICD re-interrogation shows good, stable pacing/defibrillatory parameters. OK for discharge from EP standpoint, one week f/u in our office for incision recheck. OK to start anticoagulation therapy late today. - Plan Code Status: full code Discussed Condition With: patient
[2017-11-23] MEDS: Gabapentin 300 MG Capsule PO SCH ×3 (08:45→17:47)
[2017-11-23] MEDS: Insulin NovoLOG Aspart Correctional Sugar Inj SQ SCH ×3 (08:46→17:47)
[2017-11-23] MEDS: Senna/Docusate Sodium 8.6/50 MG Tablet PO SCH ×2 (08:46→21:23)
[2017-11-23] MEDS: Furosemide 40 MG Tablet PO SCH ×2 (08:47→21:23)
[2017-11-23] MEDS: Lisinopril 5 MG Tablet PO SCH (09:00)
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
--- NOTE | 2017-11-23 12:40 | P.DCO ---
- Physical Therapy Order: Evaluate and treat, Improve ambulation, Strength and gait training - Certification I have seen patient Iggy Calle on 11/23/17. My clinical findings support the need for the requested home health care services because: Limited mobility due to disease progression I certify that my clinical findings support that this patient is homebound because: Post-op weakness
--- NOTE | 2017-11-23 12:47 | P.DCO ---
- Physical Therapy Order: Evaluate and treat, Improve ambulation, Strength and gait training - Home Health Nursing Order: Wound care and dressing changes, Nursing assessment with vital signs Instructions: -Left arm daily dressing changes: Xeroform, 4x4, soft roll, Kashif wrap - Certification I have seen patient Iggy Calle on 11/23/17. My clinical findings support the need for the requested home health care services because: Limited mobility due to disease progression I certify that my clinical findings support that this patient is homebound because: Post-op weakness
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
[2017-11-24] MEDS: Insulin NovoLOG Aspart Correctional Sugar Inj SQ SCH ×2 (00:17→08:19)
[2017-11-24] MEDS: Furosemide 40 MG Tablet PO SCH (00:26)
[2017-11-24] MEDS: Sod Chloride 0.9% Inj 500 ML IV.CONT SCH (02:22)
[2017-11-24] MEDS: Senna/Docusate Sodium 8.6/50 MG Tablet PO SCH (08:18)
[2017-11-24] MEDS: Gabapentin 300 MG Capsule PO SCH ×2 (08:18→12:12)
[2017-11-24] MEDS: Lisinopril 5 MG Tablet PO SCH (08:18)
[2017-11-24] MEDS ORDERED: Furosemide 40 MG Tablet PO SCH (09:00)
[2017-11-24 10:26] VITALS: RESP 18
[2017-11-24 13:10] VITALS: BP 135/84; TEMP 97.9; O2SAT 99
[2017-11-24 13:16] VITALS: PULSE 106
== END 2017-11-24 15:37 | disposition home health service (06) ==
LOC: NEPI 10:02 → NEDA 10:41 → EDBD 10:41 → N03 13:55 → N06 11-21 21:37 → HCIS 11-22 18:25
PROVIDERS: ADMIT Surgery; ATTEND Surgery

== ENCOUNTER 2017-12-11 09:22 | Inpatient (IN) ==
[2017-12-11] MEDS ORDERED: Sod Chloride 0.9% Inj 1,000 ML IV.SIG ONE (09:39)
--- NOTE | 2017-12-11 09:54 | ED ---
HPI General Chief Complaint: Syncope Stated Complaint: Syncope Time Seen by Provider: 12/11/17 09:39 Source: EMS and old records reviewed Mode of arrival: EMS Limitations: altered mental status History of Present Illness MD complaint: loss of consciousness Onset (ago): minute(s) Description of event: other (passed out while on toilet. BP initially low.) Prodromal symptoms: none Witnessed: yes - by bystander Context: other (unsure if it was urination or defecation) Injuries sustained associated with event: none Current symptoms: other History: history of CAD and AICD Treatments prior to arrival: IV fluids and medication (Narcan) Related Data Home Medications Medication Instructions Recorded Confirmed albuterol sulfate [ProAir HFA] 2 puff INHALATION Q4-6H PRN 11/20/17 11/20/17 apixaban [Eliquis] 5 mg PO BID 11/20/17 11/20/17 buprenorphine-naloxone [Suboxone] 1 film BUCCAL BID 11/20/17 11/20/17 furosemide 40 mg PO BID 11/20/17 11/20/17 gabapentin 600 mg PO TID 11/20/17 11/20/17 lisinopril 2.5 mg PO DAILY 11/20/17 11/20/17 potassium chloride 20 meq PO DAILY 11/20/17 11/20/17 Previous Rx's Medication Instructions Recorded bacitracin 1 applicatio TOPICAL BID g 11/20/17 magnesium hydroxide [Milk of 30 ml PO Q12H PRN ml 11/20/17 Magnesia] sennosides-docusate sodium [Senna 1 tab PO BID tab 11/20/17 Plus] oxycodone-acetaminophen [Percocet] 1 tab PO Q4H #40 tab 11/21/17 duloxetine [Cymbalta] 20 mg PO BID #60 cap 11/23/17 Allergies Allergy/AdvReac Type Severity Reaction Status Date / Time No Allergy Information Allergy Verified 11/22/17 01:29 Available Review of Systems ROS Unobtainable ROS Unobtainable: unobtainable due to mental status PMFSH Medical History Medical History Amputation of left arm (Acute) DVT (deep venous thrombosis) (Acute) Diabetes (Acute) Myocardial infarction (Acute) Stroke (Acute) Syncope (Acute) Social History Social History Substance History: Unable to Obtain Second Hand Smoke Exposure: No Smoking Status: Cognitive impairment Tobacco Type: Cigarettes How Often Do You Have a Drink Containing Alcohol: Unable to Obtain Recent Travel in [facility] within the Last 8 Weeks: No Recent Out of Country Travel within the Last 8 Weeks: No Exam Const General: healthy appearing, comfortable, no acute distress and well developed Orientation: obtunded Limitations: altered mental status [facility] Head: normal to inspection, normocephalic and atraumatic Eyes Alignment and Position: alignment normal and position abnormal Conjunctivae: conjunctivae normal Sclera: sclerae normal Pupils: pinpoint EOM: EOM intact bilaterally Neck Neck: normal visual inspection and full ROM Chest Chest: normal inspection of the chest Resp Effort & Inspection: normal respiratory effort and able to speak in complete sentences Auscultation: clear to auscultation bilaterally Cardio Rate: regular rate Rhythm: regular rhythm GI Inspection: normal to inspection Palpation: soft Back/Spine/Pelvis Cervical Spine: cervical ROM normal Thoracic/Lumbar Spine: thoraco-lumbar ROM normal Skin General: no rashes or lesions noted, turgor normal and dry skin Neuro Motor: other (responded to pain on the left but not on the right. There was no motor response to pain. He just said "ouch".) Extrem Left upper extremity: shoulder/upper arm (amputated above left elbow. Dressing in place.) Psych Appearance: other (Unable to evaluate) Procedures Central Line Placement Right SC: Time Out Performed: Yes Patient Placed on Monitor/Pulse Ox: Yes MD Prep: gown and gloves Central Line Prep: Chlorhexidine scrub Local anesthesia used: lidocaine 1% Amount of anesthesia used (mL): 3 Ultrasound Used for Placement: No Central Line Lumen Inserted: triple Post Procedure: sutured in place, good blood return, all ports aspirated, flushed, capped and sterile dressing applied Post Procedure X-Ray: tip of catheter in good position and no pneumothorax seen Patient Tolerated Procedure: well Complications: none Course Reevaluation(s) Reevaluation #1: This patient had an abnormal CT of his head. MRI of the brain with and without contrast has been recommended and ordered. Also, his hemoglobin today is 7.7. I suspect that this is secondary to his recent trauma. As he is altered and has a history of coronary disease with current ischemic changes on his EKG, I will transfuse this. I have ordered 2 units. Time: 10:37 Reevaluation #2: This patient's IV access is in his left foot. He will be needing blood products. For that reason, a right subclavian catheter was inserted. Time: 11:44 Consultations Consultation #1: Dr. Perez Time: 12:15 Initial Documented Vital Signs Temperature 97.9 F 12/11/17 09:30 Pulse Rate 82 12/11/17 09:30 Respiratory Rate 20 12/11/17 09:30 Blood Pressure 130/72 12/11/17 09:30 Pulse Oximetry 94 L 12/11/17 09:30 Last Documented Vital Signs Temperature 97.9 F 12/11/17 09:30 Pulse Rate 78 12/11/17 10:44 Respiratory Rate 20 12/11/17 10:44 Blood Pressure 120/60 12/11/17 10:44 Pulse Oximetry 100 12/11/17 10:44 Critical Care Time Critical Care Time: Yes Total Critical Care Time: 45 Attestation: Time to perform other separately billable procedures was not included in the critical care time. My time did not include minutes spent treating any other patients simultaneously or on activities that did not directly contribute to the patient's treatment. The services I provided to this patient were to treat and/or prevent clinically significant deterioration due to altered level of consciousness I provided critical care services requiring my management, as noted below: Chart data review, documentation time, medication orders and management, vital sign assessments/reviewing monitor data, ordering and reviewing lab tests, ordering and interpreting/reviewing x-rays and diagnostic studies, care of the patient and discussion of the patient with the admitting physicians Medical Decision Making MDM Narrative Medical decision making narrative: This patient presents to us by EVAC following a syncopal episode while sitting on the toilet. They reported a low initial blood pressure which was treated with an IV fluid bolus. By the time that he arrived here, his blood pressure was normal. In addition, the patient's mother was attempting to give him a Suboxone while EVAC was at the house. They noted the patient to have pinpoint pupils. They gave him a dose of Narcan. There was no change in the size of his pupils and there was no change in his mental status. Medical Screen Exam Complete: Yes Emergency Medical Condition: Yes Differential Diagnosis Differential Diagnosis: My differential diagnosis of syncope includes but is not limited to cardiac arrhythmia, hypovolemia, anemia, neurological catastrophe , vasovagal response Differential diagnosis of altered mental status includes but is not limited to infection, electrolyte abnormality, neurological event, intoxication, encephalitis, meningitis Medical Records Medical records reviewed: Yes I reviewed the patient's medical records. This patient was a trauma alert on 11/19. His major injury was amputation of the left upper extremity. He also suffered a right clavicular fracture. Other medical problems include diabetes, atrial fibrillation, coronary artery disease , cardiomyopathy with a recent EF of 30-35%, resultant AICD, IVC filter. Lab Data Result diagrams: 12/11/17 10:00 12/11/17 10:00 Lab Results 12/11/17 12/11/17 12/11/17 Range/Units 10:00 10:00 11:00 WBC 4.3 (4.0-11.0) th/mm3 RBC 2.72 L (4.50-5.90) mil/mm3 Hgb 7.7 L (13.0-17.0) gm/dL Hct 23.4 L (39.0-51.0) % MCV 86.2 (80.0-100.0) fL MCH 28.4 (27.0-34.0) pg MCHC 33.0 (32.0-36.0) % RDW 15.8 (11.6-17.2) % Plt Count 116 L (150-450) th/mm3 MPV 7.4 (7.0-11.0) fL Neut % (Auto) 43.1 (16.0-70.0) % Lymph % (Auto) 40.9 (9.0-44.0) % [place] % (Auto) 10.7 H (0.0-8.0) % Eos % (Auto) 4.4 H (0.0-4.0) % Baso % (Auto) 0.9 (0.0-2.0) % Neut # (Auto) 1.8 (1.8-7.7) th/mm3 Lymph # (Auto) 1.7 (1.0-4.8) th/mm3 [place] # (Auto) 0.5 (0.0-0.9) th/mm3 Eos # (Auto) 0.2 (0.0-0.4) th/mm3 Baso # (Auto) 0.0 (0.0-0.2) th/mm3 WBC Differential . Differential Comment Auto diff final Sodium 139 (136-145) meq/L Potassium 3.1 L (3.5-5.1) meq/L Chloride 103 (98-107) meq/L Carbon Dioxide 27.9 (21.0-32.0) meq/L Anion Gap 8 (5-15) meq/L BUN 7 (7-18) mg/dL Creatinine 0.59 L (0.60-1.30) mg/dL Estimated GFR Greater than 89 (>89) mL/min Random Glucose 102 (74-106) mg/dL Calcium 7.5 L (8.5-10.1) mg/dL Total Bilirubin 0.3 (0.2-1.0) mg/dL AST 27 (15-37) U/L ALT 14 (12-78) U/L Alkaline Phosphatase 164 H (45-117) U/L Troponin I Less than 0.02 L (0.02-0.05) ng/mL Total Protein 7.0 (6.4-8.2) g/dL Albumin 2.2 L (3.4-5.0) g/dL Urine Color (Yellw/Straw) Urine Clarity (Clear) Urine pH (5.0-8.5) Ur Specific [place] (1.002-1.035) Urine Protein (Neg-Trace) mg/dL Urine Glucose (UA) (Negative) mg/dL Urine Ketones (Negative) mg/dL Urine Occult Blood (Negative) Urine Nitrate (Negative) Urine Bilirubin (Negative) Urine Urobilinogen (Less than 2) mg/dL Ur Leukocyte Esterase (Negative) Urine RBC (0-3) /hpf Urine WBC (0-5) /hpf Micro UA Comment Ur Microscopic Review Urine Culture Comments Urine Opiates Screen (Neg) Ur Barbiturates Screen (Neg) Ur Amphetamines Screen (Neg) U Benzodiazepines Scrn (Neg) Urine Cocaine Screen (Neg) U Cannabinoids Screen (Neg) Blood Type O Positive Blood Type Recheck Required Antibody Screen Negative MTS Gel Crossmatch See Detail 12/11/17 12/11/17 Range/Units 11:00 11:00 WBC (4.0-11.0) th/mm3 RBC (4.50-5.90) mil/mm3 Hgb (13.0-17.0) gm/dL Hct (39.0-51.0) % MCV (80.0-100.0) fL MCH (27.0-34.0) pg MCHC (32.0-36.0) % RDW (11.6-17.2) % Plt Count (150-450) th/mm3 MPV (7.0-11.0) fL Neut % (Auto) (16.0-70.0) % Lymph % (Auto) (9.0-44.0) % [place] % (Auto) (0.0-8.0) % Eos % (Auto) (0.0-4.0) % Baso % (Auto) (0.0-2.0) % Neut # (Auto) (1.8-7.7) th/mm3 Lymph # (Auto) (1.0-4.8) th/mm3 [place] # (Auto) (0.0-0.9) th/mm3 Eos # (Auto) (0.0-0.4) th/mm3 Baso # (Auto) (0.0-0.2) th/mm3 WBC Differential Differential Comment Sodium (136-145) meq/L Potassium (3.5-5.1) meq/L Chloride (98-107) meq/L Carbon Dioxide (21.0-32.0) meq/L Anion Gap (5-15) meq/L BUN (7-18) mg/dL Creatinine (0.60-1.30) mg/dL Estimated GFR (>89) mL/min Random Glucose (74-106) mg/dL Calcium (8.5-10.1) mg/dL Total Bilirubin (0.2-1.0) mg/dL AST (15-37) U/L ALT (12-78) U/L Alkaline Phosphatase (45-117) U/L Troponin I (0.02-0.05) ng/mL Total Protein (6.4-8.2) g/dL Albumin (3.4-5.0) g/dL Urine Color Straw (Yellw/Straw) Urine Clarity Clear (Clear) Urine pH 6.0 (5.0-8.5) Ur Specific [place] 1.002 (1.002-1.035) Urine Protein Negative (Neg-Trace) mg/dL Urine Glucose (UA) Negative (Negative) mg/dL Urine Ketones Negative (Negative) mg/dL Urine Occult Blood Negative (Negative) Urine Nitrate Negative (Negative) Urine Bilirubin Negative (Negative) Urine Urobilinogen Less than 2 (Less than 2) mg/dL Ur Leukocyte Esterase Negative (Negative) Urine RBC Less than 1 (0-3) /hpf Urine WBC Less than 1 (0-5) /hpf Micro UA Comment Culture not ind Ur Microscopic Review Not Reportable Urine Culture Comments Culture not ind Urine Opiates Screen Neg (Neg) Ur Barbiturates Screen Neg (Neg) Ur Amphetamines Screen Neg (Neg) U Benzodiazepines Scrn Pos H (Neg) Urine Cocaine Screen Neg (Neg) U Cannabinoids Screen Neg (Neg) Blood Type Blood Type Recheck Antibody Screen MTS Gel Crossmatch Imaging Data Attestation: I personally reviewed and interpreted this imaging study as follows : Radiologist's impression: Chest X-Ray 12/11/17 09:39 CONCLUSION: 1. Minimal increased perihilar interstitial markings are noted consistent with minimal pulmonary vascular congestion versus viral pneumonitis. Clinical correlation is recommended. Head CT 12/11/17 09:39 CONCLUSION: 1. Area of low attenuation change involving the left parietal lobe. This needs further characterization utilizing MRI with and without contrast. At this point this could relate to an area of encephalomalacia but I cannot exclude edema as seen with underlying masses. 2. No acute hemorrhage. . Chest X-Ray 12/11/17 11:41 CONCLUSION: 1. No pneumothorax status post placement of right subclavian central line which has its tip in superior vena cava. 2. Stable minimal increased perihilar interstitial markings bilaterally. ECG Data EKG Prior to Arrival: No Attestation: I personally reviewed and interpreted this ECG as follows: (NSR. rate 98. nonspecific ST-T changes inferiorly and laterally.) Prior ECG tracings: available for review (The subtle STT wave changes in the inferior and lateral leads is new compared to his previous EKG in May.) Discharge Plan Discharge Disposition Patient Disposition: 30 Still Patient Discharge Details Diagnosis: Altered mental status, Anemia, Cardiac ischemia, Left parietal lobe lesion Physicians Team ED Provider: Sofía Dominguez Primary Care Provider: UNKNOWN, Rxs /Orders / Referrals /Forms Prescriptions: No Action furosemide 40 mg Tablet 40 mg PO BID RF: 0 gabapentin 600 mg Tablet 600 mg PO TID RF: 0 albuterol sulfate [ProAir HFA] 90 mcg/actuation Hfa Aerosol Inhaler 2 puff INHALATION Q4-6H PRN (Reason: Shortness Of Breath) RF: 0 lisinopril 2.5 mg Tablet 2.5 mg PO DAILY RF: 0 buprenorphine-naloxone [Suboxone] 8-2 mg Film 1 film BUCCAL BID RF: 0 apixaban [Eliquis] 5 mg Tablet 5 mg PO BID RF: 0 potassium chloride 20 mEq Tablet Extended Release 20 meq PO DAILY RF: 0 sennosides-docusate sodium [Senna Plus] 8.6-50 mg Tablet 1 tab PO BID RF: 0 bacitracin 500 unit/gram Ointment 1 applicatio Topical BID RF: 0 magnesium hydroxide [Milk of Magnesia] 400 mg/5 mL Suspension 30 ml PO Q12H PRN (Reason: Mild Constipation) RF: 0 oxycodone-acetaminophen [Percocet] 10-325 mg Tablet 1 tab PO Q4H Qty: 40 RF: 0 duloxetine [Cymbalta] 20 mg Capsule,Delayed Release(Dr/Ec) 20 mg PO BID Qty: 60 RF: 0 Status ED Status: With Doctor
--- NOTE | 2017-12-11 10:23 | CT ---
EXAM DATE: 12/11/2017 9:45 AM EDT AGE/SEX: 57 years / Male INDICATIONS: Passed out on toilet, seen here yesterday for fall. CLINICAL DATA: This is the patient's initial encounter. Patient reports that signs and symptoms have been present for 1 day and indicates a pain score of Nonresponsive. MEDICAL/SURGICAL HISTORY: Diabetes. Myocardial infarction. Stroke. . left arm amputation RADIATION DOSE: 41.35 CTDI (mGy) COMPARISON: [facility] – [place], CT HEAD W/O CONTRAST, 11/19/2017 and 11/15/2017. . TECHNIQUE: CT of the head without contrast. Using automated exposure control and adjustment of the mA and/or kV according to patient size, radiation dose was kept as low as reasonably achievable to ob tain optimal diagnostic quality images. DICOM format image data is available electronically for revi ew and comparison. FINDINGS: Cerebrum: There is an area of low attenuation change involving left parietal lobe. This involves the white matter extending from the lateral ventricle to the overlying cortex. There is some sparing of the souza matter overlying this area. No discrete mass observed. Appearance is similar to the prior st udy. The ventricles are normal for age. No evidence of midline shift, mass lesion, hemorrhage or acu te infarction. No extraaxial fluid collections are seen. Posterior Fossa: The cerebellum and brainstem are intact. The 4th ventricle is midline. The cerebe llopontine angle is unremarkable. Extracranial: The visualized portion of the orbits is intact. Skull: The calvaria is intact. No evidence of skull fracture. CONCLUSION: 1. Area of low attenuation change involving the left parietal lobe. This needs further characterizat ion utilizing MRI with and without contrast. At this point this could relate to an area of encephalom alacia but I cannot exclude edema as seen with underlying masses. 2. No acute hemorrhage. . Electronically signed by: Patrice Javier MD 12/11/2017 10:22 AM EDT
[2017-12-11 10:29] LABS: Baso % (Auto) 0.9 % (0.0-2.0); Eos # (Auto) 0.2 th/mm3 (0.0-0.4); Eos % (Auto) 4.4 % (0.0-4.0); Hematocrit 23.4 % (39.0-51.0); Hemoglobin 7.7 gm/dL (13.0-17.0); Lymph # (Auto) 1.7 th/mm3 (1.0-4.8); Lymph % (Auto) 40.9 % (9.0-44.0); Mean Corpuscular Hemoglobin 28.4 pg (27.0-34.0); Mean Corpuscular Volume 86.2 fL (80.0-100.0); Mean Platelet Volume 7.4 fL (7.0-11.0); Mono # (Auto) 0.5 th/mm3 (0.0-0.9); Mono % (Auto) 10.7 % (0.0-8.0); Neut # (Auto) 1.8 th/mm3 (1.8-7.7); Neut % (Auto) 43.1 % (16.0-70.0); Platelet Count 116 th/mm3 (150-450); Red Blood Count 2.72 mil/mm3 (4.50-5.90); Red Cell Distribution Width 15.8 % (11.6-17.2); White Blood Count 4.3 th/mm3 (4.0-11.0)
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
[2017-12-11 10:46] LABS: Alanine Aminotransferase 14 U/L (12-78); Albumin 2.2 g/dL (3.4-5.0); Anion Gap 8 meq/L (5-15); Aspartate Aminotransferase 27 U/L (15-37); Blood Urea Nitrogen 7 mg/dL (7-18); Calcium 7.5 mg/dL (8.5-10.1); Carbon Dioxide 27.9 meq/L (21.0-32.0); Chloride 103 meq/L (98-107); Glomerular Filtration Rate Greater Than 89 mL/min (>89); Glucose,Random 102 mg/dL (74-106); Potassium 3.1 meq/L (3.5-5.1); Sodium 139 meq/L (136-145)
[2017-12-11 10:50] LABS: Alkaline Phosphatase 164 U/L (45-117)
[2017-12-11 11:23] LABS: Bilirubin,Urine Negative (Negative); Clarity,Urine Clear (Clear); Color,Urine Straw (Yellw/Straw); Glucose,Urine (UA) Negative (Negative); Leukocyte Esterase,Urine Negative (Negative); Nitrite,Urine Negative (Negative); Specific Gravity,Urine 1.002 (1.002-1.035)
[2017-12-11 11:31] LABS: Amphetamine Screen,Urine Neg (Neg); Barbiturate Screen,Urine Neg (Neg); Cannabinoid Screen,Urine Neg (Neg); Cocaine Screen,Urine Neg (Neg)
[2017-12-11 11:36] LABS: Opiate Screen,Urine Neg (Neg)
--- NOTE | 2017-12-11 12:00 | XR ---
EXAM DATE: 12/11/2017 11:41 AM EDT AGE/SEX: 57 years / Male INDICATIONS: Evaluate central line placement. CLINICAL DATA: This is the patient's subsequent encounter. Patient reports that signs and symptoms h ave been present for 1 day and indicates a pain score of Nonresponsive. MEDICAL/SURGICAL HISTORY: Non-responsive. Pacemaker. Left arm amputation. COMPARISON: [facility] – [place], CHEST 1V SINGLE AP, 12/11/2017. . FINDINGS: Right subclavian central line has been placed and has its tip in the superior vena cava. There is no pneumothorax. The heart is stable. Minimal increased perihilar interstitial markings are again noted and stable. CONCLUSION: 1. No pneumothorax status post placement of right subclavian central line which has its tip in super ior vena cava. 2. Stable minimal increased perihilar interstitial markings bilaterally. Electronically signed by: Roby Burt MD 12/11/2017 11:58 AM EDT
[2017-12-11] MEDS ORDERED: Naloxone Inj 0.4 MG/ML Vial IV.PUSH ONE (13:09)
--- NOTE | 2017-12-11 13:11 | P.HPFP ---
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 17:16> - Attending Attestation The exam, history, and the medical decision-making described in the above note were completed with the assistance of the resident physician. I reviewed and agree with the findings presented. I attest that I had a [id number] encounter with the patient on the same day, and personally performed and documented my assessment and findings in the medical record. 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 Patient refused SNF and did not qualify for inpt rehab during last admission and was discharged home. He was brought in as he became unresponsive at home after multiple falls. on initial evaluation in ED, patient would localize pain including in his abdomen but would not open eyes to voice, or follow commands, he could move all extremities and had pinpoint pupils and respiratory depression. 2L NC able to be removed and sat 94%. BP had responded to fluid bolus but admitted to ICU 2/2 unresponsive nature still without certain etiology. He received narcan in the ED and after he had been in the ICU, I went to see him and he was much more responsive. He could open his eyes to voice and would answer some questions. He was reported to even have signed a consent for blood. At that time ABG revealed only mild hypoxia and hypercapneia UDS + for only benzos and family denied him having access to them. Patient was able to tell me that he did not take any pills not prescribed to him but he was also not very coherent. Encephalopathy: suspect medication induced, but may have other reasons including multiple head injuries recently. CT showed large parietal infarct and could not get qualifying MRI with recent pacemaker so we appreciate neurology's assistance. Deemed by neurology to likely be old and not the reason for his altered mental status today. Will continue to hold suboxone until alert and monitor for continued clinical improvement. If continues to become more alert with adequate reoxygenation and time will transfer to floor in the AM. Would trial additional naloxone if needed overnight. No other obvious causes to start but will monitor results of additional testing from neurology. Acute Hypoxic Hypercapneic respiratory failure: mild, hope to completely resolve as he becomes more alert, already improving Anemia: likely multifactorial, perhaps largely related to recent trauma, transfusing now as he has multiple comorbidities, hope to help with volume and oxygenation, as he is being transfused may restart lasix as indicated. CT abdomen to look for another source as he was unable to give history and had obvious abdominal pain, this showed no source of bleeding so will cautiously continue his eliquis for now. Will manage other chronic problems as close to at home as we can. Anticipate a challenging discharge as family is already talking about how they "dont want him to go to a long term and ." Initially critically ill, appears that he will become quickly appropriate to transfer. <Laureano Horn - 12/11/17 19:53> <Leslie Perez - Last Filed: 12/11/17 16:51> (6) Altered mental status Qualifiers: Altered mental status type: coma Coma depth: [place] coma 9-12 Coma timing: in the field (EMT or ambulance) Qualified Code(s): R40.2421 - [place] coma scale score 9-12, in the field [EMT or ambulance] (7) Anemia Qualifiers: Anemia type: unspecified type Qualified Code(s): D64.9 - Anemia, unspecified <Laureano Horn - Last Filed: 12/11/17 19:53> (6) Altered mental status Qualifiers: Altered mental status type: coma Coma depth: [place] coma 9-12 Coma timing: in the field (EMT or ambulance) Qualified Code(s): R40.2421 - [place] coma scale score 9-12, in the field [EMT or ambulance] (7) Anemia Qualifiers: Anemia type: unspecified type Qualified Code(s): D64.9 - Anemia, unspecified <Leslie Perez T - Last Filed: 12/11/17 16:51> (6) Altered mental status Qualifiers: Altered mental status type: coma Coma depth: [place] coma 9-12 Coma timing: in the field (EMT or ambulance) Qualified Code(s): R40.2421 - [place] coma scale score 9-12, in the field [EMT or ambulance] (7) Anemia Qualifiers: Anemia type: unspecified type Qualified Code(s): D64.9 - Anemia, unspecified <Laureano Horn - Last Filed: 12/11/17 19:53> (6) Altered mental status Qualifiers: Altered mental status type: coma Coma depth: [place] coma 9-12 Coma timing: in the field (EMT or ambulance) Qualified Code(s): R40.2421 - [place] coma scale score 9-12, in the field [EMT or ambulance] (7) Anemia Qualifiers: Anemia type: unspecified type Qualified Code(s): D64.9 - Anemia, unspecified
[2017-12-11 13:50] LABS: ABG PCO2 46 mmHg (38-42); ABG PO2 57 mmHg (61-120)
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
--- NOTE | 2017-12-11 14:54 | P.CONNEU ---
History of Present Illness Service: Neurology Primary Care Provider: UNKNOWN Chief Complaint: Mental status changes History of Present Illness: 57-year-old male admitted for mental status changes. Blood pressure apparently 70 systolic. History of cardiomyopathy was recently seen by cardiology earlier this month defibrillator device placed and also placed on Eliquis. He has a history of atrial fibrillation and previous stroke. Recently had his left upper extremity amputated was seen by trauma surgery. He has been having recurrent falls been using a walker. Also has been taking pain meds but apparently ran out of them. Limited history from patient sister at bedside. CT brain demonstrates probable old left parieto-occipital stroke. Chest x-ray with mild infiltrates. No leukocytosis afebrile blood pressure stable. Was noted be hypoxic on ABG. Review of Systems unobtainable due to mental condition PMFSH - History History Provided By: [employer]ist / EMT - Medical History Medical History: Medical History (Last Reviewed 12/11/17 @ 13:29 by Dinora Levine, CELEBRITY MANAGER) Amputation of left arm DVT (deep venous thrombosis) Diabetes Myocardial infarction Stroke Syncope - Tobacco History Second Hand Smoke Exposure: No Smoking Status: Cognitive impairment Tobacco Type: Cigarettes - Alcohol History How Often Do You Have a Drink Containing Alcohol: Unable to Obtain - Substance Use History Substance History: Unable to Obtain - Travel History Recent Travel in the [place] Within the Last 8 Weeks: No Recent Travel Out of the Country Within the Last 8 Weeks: No - Immunization History Tetanus Immunization: Unable to Assess Hx Influenza Vaccine This Season: Unable to Assess Medications and Allergies Active Medications: Active Medications Sodium Chloride (Ns Flush) 2 ml IV.FLUSH PRN PRN PRN Reason: FLUSH AFTER USING IV ACCESS Last Admin: 12/11/17 13:25 Dose: 2 ml Allergies Allergy/AdvReac Type Severity Reaction Status Date / Time No Allergy Information Allergy Verified 11/22/17 01:29 Available Home Medications Medication Instructions Recorded Confirmed Type albuterol sulfate [ProAir HFA] 2 puff INHALATION Q4-6H PRN 11/20/17 12/11/17 History apixaban [Eliquis] 5 mg PO BID 11/20/17 12/11/17 History buprenorphine-naloxone [Suboxone] 1 film BUCCAL BID 11/20/17 12/11/17 History furosemide 40 mg PO BID 11/20/17 12/11/17 History gabapentin 600 mg PO TID 11/20/17 12/11/17 History lisinopril 2.5 mg PO DAILY 11/20/17 12/11/17 History potassium chloride 20 meq PO DAILY 11/20/17 12/11/17 History Exam Vital signs: Vital Signs 12/11/17 09:30 12/11/17 09:39 12/11/17 10:44 Temperature 97.9 F Pulse Rate 82 78 Respiratory Rate 20 20 20 Blood Pressure 130/72 120/60 Pulse Oximetry 94 L 94 L 100 12/11/17 12:31 12/11/17 12:57 12/11/17 13:30 Temperature Pulse Rate 73 77 Respiratory Rate 16 14 Blood Pressure 138/74 125/63 Pulse Oximetry 100 94 L 93 L Intake & Output 12/10/17 12/11/17 12/11/17 18:59 06:59 18:59 Intake Total 1000 / 1000 Balance 1000 / 1000 Weight 77.111 kg Intake: IV 1000 / 1000 NS Inj 1,000 ML @ Wide Open IV. 1000 / 1000 SIG BOLUS ONE Rx#:[id number] Narrative: GENERAL: in NAD, SKIN: Warm and dry. HEAD: Atraumatic. Normocephalic. EYES: Pupils equal and round. No scleral icterus. ENT: No nasal bleeding or discharge. Mucous membranes pink and moist. NECK: Trachea midline. No JVD. CARDIOVASCULAR: Regular rate and rhythm. RESPIRATORY: No accessory muscle use. GASTROINTESTINAL: Abdomen soft, non-tender, nondistended. MUSCULOSKELETAL: Left upper extremity amputation NEUROLOGICAL: Very drowsy mildly arousable not following grimaces OU 3 mm sluggishly reactive, no gaze deviation withdraws lower limbs right upper extremity left upper extremity bandaged status post amputation PSYCHIATRIC: Calm - Constitutional no acute distress - Routine HEENT Exam Head: Present: normocephalic Results - Labs CBC & Chem 7: 12/11/17 10:00 12/11/17 10:00 Labs: Laboratory Results - last 24 hr 12/11/17 12/11/17 12/11/17 10:00 10:00 11:00 WBC 4.3 RBC 2.72 L Hgb 7.7 L Hct 23.4 L MCV 86.2 MCH 28.4 MCHC 33.0 RDW 15.8 Plt Count 116 L MPV 7.4 Neut % (Auto) 43.1 Lymph % (Auto) 40.9 [place] % (Auto) 10.7 H Eos % (Auto) 4.4 H Baso % (Auto) 0.9 Neut # (Auto) 1.8 Lymph # (Auto) 1.7 [place] # (Auto) 0.5 Eos # (Auto) 0.2 Baso # (Auto) 0.0 WBC Differential . Differential Comment Auto diff final Puncture Site Patient Temperature O2 Saturation ABG pH ABG pCO2 ABG pO2 ABG HCO3 ABG O2 Content ABG Base Excess ABG Methemoglobin Lane Test Hemoglobin Carboxyhemoglobin Inspired O2 Critical Value Sodium 139 Potassium 3.1 L Chloride 103 Carbon Dioxide 27.9 Anion Gap 8 BUN 7 Creatinine 0.59 L Estimated GFR Greater than 89 Random Glucose 102 Calcium 7.5 L Total Bilirubin 0.3 AST 27 ALT 14 Alkaline Phosphatase 164 H Ammonia Troponin I Less than 0.02 L Total Protein 7.0 Albumin 2.2 L Urine Color Urine Clarity Urine pH Ur Specific [place] Urine Protein Urine Glucose (UA) Urine Ketones Urine Occult Blood Urine Nitrate Urine Bilirubin Urine Urobilinogen Ur Leukocyte Esterase Urine RBC Urine WBC Micro UA Comment Ur Microscopic Review Urine Culture Comments Salicylates Urine Opiates Screen Ur Barbiturates Screen Ur Amphetamines Screen U Benzodiazepines Scrn Urine Cocaine Screen U Cannabinoids Screen Blood Type O Positive Blood Type Recheck Required Antibody Screen Negative MTS Gel Crossmatch See Detail 12/11/17 12/11/17 12/11/17 11:00 11:00 13:28 WBC RBC Hgb Hct MCV MCH MCHC RDW Plt Count MPV Neut % (Auto) Lymph % (Auto) [place] % (Auto) Eos % (Auto) Baso % (Auto) Neut # (Auto) Lymph # (Auto) [place] # (Auto) Eos # (Auto) Baso # (Auto) WBC Differential Differential Comment Puncture Site Right radial Patient Temperature 98.6 O2 Saturation 86 L* ABG pH 7.42 ABG pCO2 46 H ABG pO2 57 L* ABG HCO3 29 H ABG O2 Content 9.9 L ABG Base Excess 5.[address] Test Present Hemoglobin 8.2 L Carboxyhemoglobin 2.7 Inspired O2 21 Critical Value Yes Sodium Potassium Chloride Carbon Dioxide Anion Gap BUN Creatinine Estimated GFR Random Glucose Calcium Total Bilirubin AST ALT Alkaline Phosphatase Ammonia Troponin I Total Protein Albumin Urine Color Straw Urine Clarity Clear Urine pH 6.0 Ur Specific [place] 1.002 Urine Protein Negative Urine Glucose (UA) Negative Urine Ketones Negative Urine Occult Blood Negative Urine Nitrate Negative Urine Bilirubin Negative Urine Urobilinogen Less than 2 Ur Leukocyte Esterase Negative Urine RBC Less than 1 Urine WBC Less than 1 Micro UA Comment Culture not ind Ur Microscopic Review Not Reportable Urine Culture Comments Culture not ind Salicylates Urine Opiates Screen Neg Ur Barbiturates Screen Neg Ur Amphetamines Screen Neg U Benzodiazepines Scrn Pos H Urine Cocaine Screen Neg U Cannabinoids Screen Neg Blood Type Blood Type Recheck Antibody Screen MTS Gel Crossmatch 12/11/17 12/11/17 13:45 13:45 WBC RBC Hgb Hct MCV MCH MCHC RDW Plt Count MPV Neut % (Auto) Lymph % (Auto) [place] % (Auto) Eos % (Auto) Baso % (Auto) Neut # (Auto) Lymph # (Auto) [place] # (Auto) Eos # (Auto) Baso # (Auto) WBC Differential Differential Comment Puncture Site Patient Temperature O2 Saturation ABG pH ABG pCO2 ABG pO2 ABG HCO3 ABG O2 Content ABG Base Excess ABG Methemoglobin Lane Test Hemoglobin Carboxyhemoglobin Inspired O2 Critical Value Sodium Potassium Chloride Carbon Dioxide Anion Gap BUN Creatinine Estimated GFR Random Glucose Calcium Total Bilirubin AST ALT Alkaline Phosphatase Ammonia 23 Troponin I Total Protein Albumin Urine Color Urine Clarity Urine pH Ur Specific [place] Urine Protein Urine Glucose (UA) Urine Ketones Urine Occult Blood Urine Nitrate Urine Bilirubin Urine Urobilinogen Ur Leukocyte Esterase Urine RBC Urine WBC Micro UA Comment Ur Microscopic Review Urine Culture Comments Salicylates 2.0 L Urine Opiates Screen Ur Barbiturates Screen Ur Amphetamines Screen U Benzodiazepines Scrn Urine Cocaine Screen U Cannabinoids Screen Blood Type Blood Type Recheck Antibody Screen MTS Gel Crossmatch - Imaging Impressions Abdomen/Pelvis CT 12/11/17 00:00 CONCLUSION: 1. The spleen now appears mildly prominent but otherwise unremarkable except for calcified granulomas. 2. There is no evidence of acute visceral injury on this noncontrast study. 3. Abnormal calcifications along the distal left ventricle and pericardium which may be related to prior myocardial infarction. Chest X-Ray 12/11/17 09:39 CONCLUSION: 1. Minimal increased perihilar interstitial markings are noted consistent with minimal pulmonary vascular congestion versus viral pneumonitis. Clinical correlation is recommended. Head CT 12/11/17 09:39 CONCLUSION: 1. Area of low attenuation change involving the left parietal lobe. This needs further characterization utilizing MRI with and without contrast. At this point this could relate to an area of encephalomalacia but I cannot exclude edema as seen with underlying masses. 2. No acute hemorrhage. . Chest X-Ray 12/11/17 11:41 CONCLUSION: 1. No pneumothorax status post placement of right subclavian central line which has its tip in superior vena cava. 2. Stable minimal increased perihilar interstitial markings bilaterally. Review/Management - Diagnosis (1) Encephalopathy acute Code(s): G93.40 - Encephalopathy, unspecified Status: Acute Current Visit: Yes (2) Fracture dislocation of joint of left upper extremity Status: Acute Current Visit: No (3) Cardiomyopathy Code(s): I42.9 - Cardiomyopathy, unspecified Status: Acute Current Visit: No (4) Left parietal lobe lesion Code(s): G93.9 - Disorder of brain, unspecified Status: Acute Current Visit : Yes - Review/Management Plan: Encephalopathy could be multifactorial in etiology Could be from recurrent concussive injury from falls, drug withdrawal, emerging sepsis/hypoxia. Was noted to have was noted to be hypotensive and also was mildly hypoxic Parietal lesion appears to be chronic Recommendations EEG Medical management monitor cardiorespiratory status Continue anticoagulation for his A. fib and cardiomyopathy Follow exam Discussed with patient's sister at bedside
--- NOTE | 2017-12-11 16:53 | XR ---
EXAM DATE: 12/11/2017 12:00 AM EDT AGE/SEX: 57 years / Male INDICATIONS: Fall, complains of left shoulder pain. CLINICAL DATA: This is the patient's initial encounter. Patient reports that signs and symptoms have been present for 1 day and indicates a pain score of Nonresponsive. MEDICAL/SURGICAL HISTORY: . Diabetes. Deep venous thrombosis. Cardiovascular disease. CVA SYNCO PE . Amputation left forearm. COMPARISON: [facility] – [place], [place] LEFT 1V, 11/19/2017. . FINDINGS: Bony structures are intact and in normal alignment. Osseous density is normal. Soft tissues are unre markable. No radiopaque foreign bodies seen. 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 A transvenous pacer unit is present obscuring portions of the scapula. Mild degenerative changes present in the chr omic radicular joint. CONCLUSION: 1. No acute fracture or malalignment. 2. Mild degenerative change in the chromic liquid joint. 3. Distal humeral amputation. Electronically signed by: Laureano Lucero MD 12/11/2017 4:52 PM EDT
[2017-12-11] MEDS ORDERED: oxyCODONE/Acetaminophen 10/325 Tablet PO SCH (17:00)
--- NOTE | 2017-12-11 17:35 | ECG ---
Date Performed: 12/11/2017 Time Performed: 09:31:13 PTAGE: 57 years EKG: Sinus rhythm SEPTAL MYOCARDIAL INFARCTION MODERATE T-WAVE ABNORMALITY, CONSIDER INFERIOR ISCHEMIA Compared to pre vious tracing, inferior ST depressions are new, consider ischemia ABNORMAL ECG PREVIOUS TRACING : 11/19/2017 16.36 DOCTOR: Adrian Salas Interpretating Date/Time 12/11/2017 17:33:56
[2017-12-11 17:39] LABS: C-Reactive Protein 4.6 mg/dL (0.00-0.30)
[2017-12-11] MEDS ORDERED: Gabapentin 300 MG Capsule PO SCH (18:00)
[2017-12-11 18:04] LABS: Troponin I 0.04 ng/mL (0.02-0.05)
[2017-12-11] MEDS: Sod Chloride 0.9% Inj 1,000 ML IV.CONT SCH (18:55)
[2017-12-11] MEDS ORDERED: Furosemide 40 MG Tablet PO SCH (21:00)
[2017-12-11] MEDS ORDERED: [UNRECOGNIZED DRUG - OTHER] SL SCH (21:00)
--- NOTE | 2017-12-11 21:29 | MG ---
cc: Tho Saldana MD ELECTROENCEPHALOGRAM RECORD NUMBER: [id number] DESCRIPTION: The patient obviously asleep during the recording. Stage I and II sleep with theta and beta spindle frequencies occurring 10-40 microvolts. Some rhythmic frontal delta occurring epoch 80. He also had some shoulder twitch lasting a few seconds, occasional mouth twitch. Limited driving with photic stimulation. A lot of movement and myogenic artifact occurring at that time. Minimal K complexes. Mild EEG variability and reactivity. Single-lead EKG showing sinus rhythm. INTERPRETATION: At least mild degree of encephalopathy associated with sleep state. Clinical correlation. MD ERIK Britt/dee , 09:03 PM , 09:09 PM
--- NOTE | 2017-12-11 22:34 | ECG ---
Date Performed: 12/11/2017 Time Performed: 20:44:43 PTAGE: 57 years EKG: Sinus rhythm SEPTAL MYOCARDIAL INFARCTION , PROBABLY OLD MODERATE T-WAVE ABNORMALITY ABNORMAL ECG PREVIOUS TRACING : 12/11/2017 09.31 Since the previous tracing, no significant change noted DOCTOR: Bindu Benítez Interpretating Date/Time 12/11/2017 22:32:30
[2017-12-11 22:55] LABS: Hemoglobin 11.1 gm/dL (13.0-17.0)
[2017-12-12] MEDS ORDERED: Sodium Chlor 0.9% Inj 500 ML IV.SIG ONE (02:55)
[2017-12-12] MEDS: Sod Chloride 0.9% Inj 1,000 ML IV.CONT SCH ×3 (03:18→22:09)
[2017-12-12 03:49] LABS: Baso % (Auto) 0.5 % (0.0-2.0); Eos # (Auto) 0.1 th/mm3 (0.0-0.4); Eos % (Auto) 2.2 % (0.0-4.0); Hematocrit 31.3 % (39.0-51.0); Hemoglobin 10.2 gm/dL (13.0-17.0); Lymph # (Auto) 1.8 th/mm3 (1.0-4.8); Lymph % (Auto) 38.6 % (9.0-44.0); Mean Corpuscular HGB Conc 32.7 % (32.0-36.0); Mean Corpuscular Hemoglobin 27.9 pg (27.0-34.0); Mean Corpuscular Volume 85.2 fL (80.0-100.0); Mono # (Auto) 0.3 th/mm3 (0.0-0.9); Mono % (Auto) 7.2 % (0.0-8.0); Neut # (Auto) 2.4 th/mm3 (1.8-7.7); Neut % (Auto) 51.5 % (16.0-70.0); Platelet Count 117 th/mm3 (150-450); Red Blood Count 3.67 mil/mm3 (4.50-5.90); Red Cell Distribution Width 15.7 % (11.6-17.2); White Blood Count 4.7 th/mm3 (4.0-11.0)
[2017-12-12 04:14] LABS: Anion Gap 7 meq/L (5-15); Blood Urea Nitrogen 7 mg/dL (7-18); Calcium 7.8 mg/dL (8.5-10.1); Carbon Dioxide 29.7 meq/L (21.0-32.0); Chloride 104 meq/L (98-107); Glomerular Filtration Rate Greater Than 89 mL/min (>89); Glucose,Random 98 mg/dL (74-106); Sodium 141 meq/L (136-145)
[2017-12-12] MEDS ORDERED: Acetaminophen 500 MG Tablet PO PRN (05:20)
[2017-12-12] MEDS ORDERED: Sodium Chlor 0.9% Inj 500 ML IV.SIG SCH (06:00)
[2017-12-12] MEDS ORDERED: Lisinopril 5 MG Tablet PO SCH ×2 (09:00)
[2017-12-12] MEDS ORDERED: Furosemide 40 MG Tablet PO SCH (09:00)
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
[2017-12-12] MEDS ORDERED: Dextrose 50% in Water 50 ML Vial IV.PUSH PRN (13:13)
--- NOTE | 2017-12-12 15:22 | P.DCO ---
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 My clinical findings support the need for the requested home health care services because: Limited mobility due to disease progression, Deconditioned with increased weakness, Limited ability to care for self, Need for psychosocial assistance, Impaired cognition/judgement, High risk of falls I certify that my clinical findings support that this patient is homebound because: Impaired cognitive ability/safety, Unsteady gait/balance, Unsafe to leave home unassisted
[2017-12-12 16:28] LABS: Hematocrit 27.9 % (39.0-51.0); Hemoglobin 9.4 gm/dL (13.0-17.0)
[2017-12-12] MEDS: Gabapentin 300 MG Capsule PO SCH (18:02)
[2017-12-12] MEDS: Insulin NovoLOG Aspart Correctional Sugar Inj SQ SCH ×2 (18:05→22:07)
[2017-12-13 03:36] LABS: Baso % (Auto) 0.3 % (0.0-2.0); Eos # (Auto) 0.1 th/mm3 (0.0-0.4); Hematocrit 29.4 % (39.0-51.0); Hemoglobin 9.5 gm/dL (13.0-17.0); Lymph # (Auto) 1.4 th/mm3 (1.0-4.8); Lymph % (Auto) 39.2 % (9.0-44.0); Mean Corpuscular HGB Conc 32.5 % (32.0-36.0); Mean Corpuscular Hemoglobin 27.8 pg (27.0-34.0); Mean Corpuscular Volume 85.4 fL (80.0-100.0); Mean Platelet Volume 7.1 fL (7.0-11.0); Mono # (Auto) 0.3 th/mm3 (0.0-0.9); Mono % (Auto) 7.7 % (0.0-8.0); Neut # (Auto) 1.7 th/mm3 (1.8-7.7); Neut % (Auto) 48.8 % (16.0-70.0); Platelet Count 97 th/mm3 (150-450); Red Blood Count 3.44 mil/mm3 (4.50-5.90); Red Cell Distribution Width 15.7 % (11.6-17.2); White Blood Count 3.6 th/mm3 (4.0-11.0)
[2017-12-13 03:46] LABS: Anion Gap 8 meq/L (5-15); Blood Urea Nitrogen 7 mg/dL (7-18); Calcium 7.5 mg/dL (8.5-10.1); Carbon Dioxide 27.3 meq/L (21.0-32.0); Chloride 106 meq/L (98-107); Glomerular Filtration Rate Greater Than 89 mL/min (>89); Glucose,Random 99 mg/dL (74-106); Potassium 3.7 meq/L (3.5-5.1); Sodium 141 meq/L (136-145)
[2017-12-13 04:16] LABS: Platelet Morphology Normal (Normal)
[2017-12-13] MEDS: Sod Chloride 0.9% Inj 1,000 ML IV.CONT SCH (06:04)
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
--- NOTE | 2017-12-13 09:42 | P.PNNEU ---
Subjective Subjective Comments: i want to go home; i slipped and fell. no baig, no new weakness; denies syncope or lightheadedness upon standing Active Medications: Active Medications Acetaminophen (Tylenol) 500 mg PO Q6H PRN PRN Reason: PAIN 1-10 AND/OR FEVER >101F Last Admin: 12/12/17 18:02 Dose: 500 mg Apixaban (Eliquis) 5 mg PO BID [facility] Last Admin: 12/12/17 22:06 Dose: 5 mg Dextrose (D50w Vial) 50 ml IV.PUSH UNSCH PRN PRN Reason: PER HYPOGLYCEMIA PROTOCOL Duloxetine HCl (Cymbalta) 20 mg PO BID [facility] Last Admin: 12/12/17 22:06 Dose: 20 mg Gabapentin (Neurontin) 600 mg PO TID [facility] Last Admin: 12/12/17 18:02 Dose: 600 mg Glucagon (Glucagon Inj) 1 mg OTHER PRN PRN PRN Reason: for Hypoglycemia Protocol Sodium Chloride (Ns Inj) 500 mls @ 0 mls/hr IV.SIG BOLUS [facility] Insulin Aspart (Novolog Insulin Correctional Sugar Inj) 0 unit SQ ACHS [facility]; Protocol Last Admin: 12/12/17 22:07 Dose: Not Given Patient Own Narcotic Med 1(Suboxone Film ) 0 each SL BID [facility] Potassium Chloride (K-Dur) 20 meq PO DAILY [facility] Last Admin: 12/12/17 10:08 Dose: 20 meq Sodium Chloride (Ns Flush) 2 ml IV.FLUSH PRN PRN PRN Reason: FLUSH AFTER USING IV ACCESS Last Admin: 12/11/17 13:25 Dose: 2 ml Thiamine HCl (Thiamine Inj) 100 mg IM DAILY [facility] Last Admin: 12/12/17 10:08 Dose: 100 mg Allergies/Adverse Reactions: Allergies Allergy/AdvReac Type Severity Reaction Status Date / Time No Allergy Information Allergy Verified 11/22/17 01:29 Available Review of Systems All other systems reviewed negative except as stated in HPI Physical Exam Vital signs: Vital Signs 12/12/17 10:00 12/12/17 10:37 12/12/17 11:00 Temperature Pulse Rate 63 66 63 Respiratory Rate 12 10 L 9 L Blood Pressure 120/59 L 122/61 Pulse Oximetry 98 87 L 100 12/12/17 12:00 12/12/17 12:20 12/12/17 12:30 Temperature Pulse Rate 60 64 62 Respiratory Rate 14 12 15 Blood Pressure 113/56 L 113/56 L 110/55 L Pulse Oximetry 98 97 97 12/12/17 13:00 12/12/17 13:30 12/12/17 14:00 Temperature Pulse Rate 62 68 73 Respiratory Rate 14 11 L 19 Blood Pressure 111/55 L 113/58 L 102/53 L Pulse Oximetry 96 98 98 12/12/17 14:30 12/12/17 15:00 12/12/17 15:30 Temperature Pulse Rate 64 66 63 Respiratory Rate 22 17 15 Blood Pressure 102/51 L 96/52 L 109/56 L Pulse Oximetry 98 96 96 12/12/17 16:00 12/12/17 16:30 12/12/17 17:00 Temperature Pulse Rate 68 66 69 Respiratory Rate 19 11 L 14 Blood Pressure 111/59 L 117/58 L 109/59 L Pulse Oximetry 97 99 99 12/12/17 18:00 12/12/17 20:00 12/13/17 00:00 Temperature 98.0 F 97.3 F L 97.6 F Pulse Rate 65 66 72 Respiratory Rate 18 17 18 Blood Pressure 118/73 109/52 L 114/72 Pulse Oximetry 100 97 97 12/13/17 01:25 12/13/17 04:00 12/13/17 08:03 Temperature 97.6 F 97.8 F Pulse Rate 64 69 62 Respiratory Rate 18 16 Blood Pressure 112/59 L 110/58 L Pulse Oximetry 95 98 12/13/17 08:05 Temperature Pulse Rate Respiratory Rate Blood Pressure Pulse Oximetry 98 Intake & Output 12/12/17 12/13/17 12/13/17 18:59 06:59 18:59 Intake Total 600 / 600 1740 / 1740 900 / 900 Output Total 850 / 850 900 / 900 Balance 600 / 600 890 / 890 0 / 0 Weight 68.8 kg Intake: IV 600 / 600 1000 / 1000 900 / 900 NS Inj 1,000 ML @ 100 mls/hr IV 600 / 600 1000 / 1000 900 / 900 .CONT .Q10H [facility] Rx#:[id number] Oral 740 / 740 Output: Urine 850 / 850 900 / 900 Other: Date of Last Bowel Movement 12/12/17 Narrative: a and 0x 3, pleasant, conversates well, follows, left ue bandaged stump, rt ue, blanche 5/5 - Constitutional no acute distress - Routine HEENT Exam Head: Present: normocephalic Objective Laboratory Results - last 24 hr 12/12/17 12/12/17 12/13/17 15:20 21:08 03:05 WBC 3.6 L RBC 3.44 L Hgb 9.4 L 9.5 L Hct 27.9 L 29.4 L MCV 85.4 MCH 27.8 MCHC 32.5 RDW 15.7 Plt Count 97 L MPV 7.1 Prelim Diff (Auto) Slide review pending Neut % (Auto) 48.8 Lymph % (Auto) 39.2 [place] % (Auto) 7.7 Eos % (Auto) 4.0 Baso % (Auto) 0.3 Neut # (Auto) 1.7 L Lymph # (Auto) 1.4 [place] # (Auto) 0.3 Eos # (Auto) 0.1 Baso # (Auto) 0.0 WBC Differential . Diff Scan Auto diff confirmed Differential Comment . Platelet Estimate Low L Platelet Morphology Normal Sodium Potassium Chloride Carbon Dioxide Anion Gap BUN Creatinine Estimated GFR POC Glucose 133 H Random Glucose Calcium 12/13/17 12/13/17 03:05 07:29 WBC RBC Hgb Hct MCV MCH MCHC RDW Plt Count MPV Prelim Diff (Auto) Neut % (Auto) Lymph % (Auto) [place] % (Auto) Eos % (Auto) Baso % (Auto) Neut # (Auto) Lymph # (Auto) [place] # (Auto) Eos # (Auto) Baso # (Auto) WBC Differential Diff Scan Differential Comment Platelet Estimate Platelet Morphology Sodium 141 Potassium 3.7 Chloride 106 Carbon Dioxide 27.3 Anion Gap 8 BUN 7 Creatinine 0.58 L Estimated GFR Greater than 89 POC Glucose 157 H Random Glucose 99 Calcium 7.5 L Microbiology 12/11/17 13:55 Aerobic Blood Culture - Preliminary Blood - Peripheral No growth in 1 day Anaerobic Blood Culture - Preliminary No growth in 1 day 12/11/17 13:45 Aerobic Blood Culture - Preliminary Blood - Peripheral No growth in 1 day Anaerobic Blood Culture - Preliminary No growth in 1 day Review/Management - Diagnosis (1) Encephalopathy acute Code(s): G93.40 - Encephalopathy, unspecified Status: Acute Current Visit: Yes (2) Fracture dislocation of joint of left upper extremity Status: Acute Current Visit: No (3) Cardiomyopathy Code(s): I42.9 - Cardiomyopathy, unspecified Status: Acute Current Visit: No (4) Left parietal lobe lesion Code(s): G93.9 - Disorder of brain, unspecified Status: Acute Current Visit : Yes - Review/Management Plan: Encephalopathy could be multifactorial in etiology Could be from recurrent concussive injury from falls, drug withdrawal, emerging sepsis/hypoxia. Was noted to have was noted to be hypotensive and also was mildly hypoxic Parietal lesion appears to be chronic Recommendations mental status improved consider orthostatics fall precautions p.t. d/w medical d/c planning no driving f/u with his pcp
[2017-12-13] MEDS: Insulin NovoLOG Aspart Correctional Sugar Inj SQ SCH ×4 (10:07→21:02)
[2017-12-13] MEDS: Gabapentin 300 MG Capsule PO SCH ×3 (10:10→18:21)
[2017-12-14] MEDS: Gabapentin 300 MG Capsule PO SCH ×3 (09:30→17:39)
--- NOTE | 2017-12-14 10:36 | P.PNFP ---
Subjective Interval history: No acute events overnight. Patient resting in bed. States that he would like to go home. He was able to walk around the room and stand up without being lightheaded or dizzy. Discussed with patient that insurance will not pay for home health PT. Feels that he will be safe at home. However, OT recommended patient go to rehab due to recent left arm amputation. Will work with CM about seeing if patient can be accepted to inpatient [facility]. Spoke with sister, she will bring Suboxone from home for patient. Denies CP, SOB, N/V, and abdominal pain. <Leslie Perez T - 12/14/17 11:38> Results - Labs Result diagrams: 12/14/17 10:41 12/13/17 03:05 <Laureano Horn - 12/14/17 15:01> Abnormal lab results 12/13/17 12/13/17 12/14/17 Range/Units 18:07 21:01 08:17 RBC (4.50-5.90) mil/mm3 Hgb (13.0-17.0) gm/dL Hct (39.0-51.0) % Plt Count (150-450) th/mm3 POC Glucose 116 H 122 H 116 H (68-110) mg/dl 12/14/17 12/14/17 Range/Units 10:41 11:17 RBC 3.97 L (4.50-5.90) mil/mm3 Hgb 11.2 L (13.0-17.0) gm/dL Hct 33.4 L (39.0-51.0) % Plt Count 133 L D (150-450) th/mm3 POC Glucose 167 H (68-110) mg/dl Short CBC 12/14/17 Range/Units 10:41 WBC 5.1 (4.0-11.0) th/mm3 Hgb 11.2 L (13.0-17.0) gm/dL Hct 33.4 L (39.0-51.0) % Plt Count 133 L D (150-450) th/mm3 <Laureano Horn - 12/14/17 15:01> Abnormal lab results 12/13/17 12/13/17 12/13/17 Range/Units 11:32 18:07 21:01 POC Glucose 142 H 116 H 122 H (68-110) mg/dl 10/05/18 Range/Units 08:17 POC Glucose 116 H (68-110) mg/dl <Leslie Perez T - 12/14/17 10:35> Physical Exam Vital signs: Vital Signs 12/13/17 16:00 12/13/17 17:45 12/13/17 20:00 Temperature 97.8 F 98.4 F Pulse Rate 68 62 Respiratory Rate 18 17 Blood Pressure 105/61 98/50 L Pulse Oximetry 99 99 100 12/14/17 00:00 12/14/17 04:00 12/14/17 08:00 Temperature 98.5 F 99 F 98.1 F Pulse Rate 60 67 73 Respiratory Rate 16 16 16 Blood Pressure 99/54 L 94/62 L 82/56 L Pulse Oximetry 98 96 96 12/14/17 12:00 Temperature 97.9 F Pulse Rate 62 Respiratory Rate Blood Pressure 103/64 Pulse Oximetry 96 Intake & Output 12/13/17 12/14/17 12/14/17 18:59 06:59 18:59 Intake Total 2070 / 2070 480 / 480 240 / 240 Output Total 2800 / 2800 1450 / 1450 Balance -730 / -730 -970 / -970 240 / 240 Weight 71.8 kg Intake: IV 900 / 900 NS Inj 1,000 ML @ 100 mls/hr IV 900 / 900 .CONT .Q10H [facility] Rx#:[id number] Oral 1170 / 1170 480 / 480 Oral Supplement 240 / 240 Output: Urine 2800 / 2800 1450 / 1450 Other: Date of Last Bowel Movement 12/13/17 12/13/17 # Bowel Movements 1 # Incontinent Bowel Movements 0 <Laureano Horn - 12/14/17 15:01> Vital Signs 12/13/17 11:00 12/13/17 11:02 12/13/17 12:00 Temperature 97.3 F L Pulse Rate 67 67 Respiratory Rate 17 Blood Pressure 100/57 L 95/52 L Pulse Oximetry 98 12/13/17 16:00 12/13/17 17:45 12/13/17 20:00 Temperature 97.8 F 98.4 F Pulse Rate 68 62 Respiratory Rate 18 17 Blood Pressure 105/61 98/50 L Pulse Oximetry 99 99 100 12/14/17 00:00 12/14/17 04:00 12/14/17 08:00 Temperature 98.5 F 99 F 98.1 F Pulse Rate 60 67 73 Respiratory Rate 16 16 16 Blood Pressure 99/54 L 94/62 L 82/56 L Pulse Oximetry 98 96 96 Intake & Output 12/13/17 12/14/17 12/14/17 18:59 06:59 18:59 Intake Total 2070 / 2070 480 / 480 240 / 240 Output Total 2800 / 2800 1450 / 1450 Balance -730 / -730 -970 / -970 240 / 240 Weight 71.8 kg Intake: IV 900 / 900 NS Inj 1,000 ML @ 100 mls/hr IV 900 / 900 .CONT .Q10H [facility] Rx#:[id number] Oral 1170 / 1170 480 / 480 Oral Supplement 240 / 240 Output: Urine 2800 / 2800 1450 / 1450 Other: Date of Last Bowel Movement 12/13/17 12/13/17 # Bowel Movements 1 # Incontinent Bowel Movements 0 <Leslie Perez - 12/14/17 10:35> Narrative: General: No acute distress Skin: Multiple abrasions to the head HEENT: Moist mucous membranes Cardiac: Regular rate and rhythm without murmur Pulmonary: Clear to auscultation bilaterally without increased work of breathing and with good aeration Abdomen: Soft, nontender, positive bowel sounds Extremities: 2+ pedal pulses bilaterally. No edema. Left above elbow amputation: Incision appears to be well hearing. Irritated, but healing skin to the aspect of the stump. <Leslie Perez - 12/14/17 11:38> Assessment and Plan - Assessment (1) Altered mental status Code(s): R41.82 - Altered mental status, unspecified Status: Acute (2) History of DVT (deep vein thrombosis) Code(s): Z86.718 - Personal history of other venous thrombosis and embolism Status: Acute (3) Presence of IVC filter Code(s): Z95.828 - Presence of other vascular implants and grafts Status: Acute (4) Cardiomyopathy Code(s): I42.9 - Cardiomyopathy, unspecified Status: Acute (5) Status post implantation of automatic cardioverter/defibrillator (AICD) Code(s): Z95.810 - Presence of automatic (implantable) cardiac defibrillator Status: Acute (6) Depressed Code(s): F32.9 - Major depressive disorder, single episode, unspecified Status : Acute (7) Anemia Code(s): D64.9 - Anemia, unspecified Status: Acute (8) Left parietal lobe lesion Code(s): G93.9 - Disorder of brain, unspecified Status: Acute (9) Afib Code(s): I48.91 - Unspecified atrial fibrillation Status: Acute (10) Substance dependence, daily use Code(s): F19.20 - Other psychoactive substance dependence, uncomplicated Status: Acute (11) Diabetes mellitus Code(s): E11.9 - Type 2 diabetes mellitus without complications Status: Acute <Laureano Horn K - 12/14/17 15:01> (1) Altered mental status Code(s): R41.82 - Altered mental status, unspecified Status: Acute (2) History of DVT (deep vein thrombosis) Code(s): Z86.718 - Personal history of other venous thrombosis and embolism Status: Acute (3) Presence of IVC filter Code(s): Z95.828 - Presence of other vascular implants and grafts Status: Acute (4) Cardiomyopathy Code(s): I42.9 - Cardiomyopathy, unspecified Status: Acute (5) Status post implantation of automatic cardioverter/defibrillator (AICD) Code(s): Z95.810 - Presence of automatic (implantable) cardiac defibrillator Status: Acute (6) Depressed Code(s): F32.9 - Major depressive disorder, single episode, unspecified Status : Acute (7) Anemia Code(s): D64.9 - Anemia, unspecified Status: Acute (8) Left parietal lobe lesion Code(s): G93.9 - Disorder of brain, unspecified Status: Acute (9) Afib Code(s): I48.91 - Unspecified atrial fibrillation Status: Acute (10) Substance dependence, daily use Code(s): F19.20 - Other psychoactive substance dependence, uncomplicated Status: Acute (11) Diabetes mellitus Code(s): E11.9 - Type 2 diabetes mellitus without complications Status: Acute <Leslie Perez - 12/14/17 11:30> - Assessment and Plan 57-year-old male with past medical history of diabetes, cardiomyopathy (EF known to be around 30%) s/p ACID placement, DVT with IVC filter place, hypertension, COPD, A. fib on Eliquis, history of substance abuse admitted for AMS after a fall. Altered mental status -Improved -Neurology cleared and signed off Anemia -Stable Cardiomyopathy -History of cardiomyopathy with EF known to be around 30% status post ACID placement on 11/22 -Use caution with fluids History of DVT -s/p IVC filter A.fib -Continue Eliquis 5mg PO BID Depression -Continue Duloxetine 20mg PO BID Diabetes: -Held home Metformin 500mg BID (patient not confident of dosing) -low dose sliding scale -hypoglycemia protocol in place Substance use -Patient on 1 film Buccal BID of suboxone, spoke with sister, she will be bringing patient's prescription -Pain management physician, Dr. Sutton Diet: Diabetic diet Fluids: PO hydration is adequate vitals q4h, monitor I & Os, cardiac telemetry DVT ppx: Eliquis Disposition: OT at rehab. [facility] with [facility]. <Leslie Perez - 12/14/17 11:38> - Attending Attestation The exam, history, and the medical decision-making described in the above note were completed with the assistance of the resident physician. I reviewed and agree with the findings presented. I attest that I had a [id number] encounter with the patient on the same day, and personally performed and documented my assessment and findings in the medical record. Had discussion at length today with Reina from and patient together in room. using therapy recommendations as a guide, we collectively decided it will be better if he can go to inpatient rehab before being discharged home. He is very fearful of withdrawing without his suboxone. Sister agreed to bring his home suboxone so it can be administered here under RN monitoring. If we get a response from [facility] today he could potentially go, but patient understands it may take until Sunday for an answer. If he is accepted he will go, if he is not , we will work on home therapies and wound care. <Laureano Horn - 12/14/17 15:01> <Leslie Perez T - Last Filed: 12/14/17 11:30> (1) Altered mental status Qualifiers: Altered mental status type: coma Coma depth: Warren coma 9-12 Coma timing: in the field (EMT or ambulance) Qualified Code(s): R40.2421 - [place]o coma scale score 9-12, in the field [EMT or ambulance] (7) Anemia Qualifiers: Anemia type: unspecified type Qualified Code(s): D64.9 - Anemia, unspecified <Laureano Horn K - Last Filed: 12/14/17 15:01> (1) Altered mental status Qualifiers: Altered mental status type: coma Coma depth: Jer[place]o coma 9-12 Coma timing: in the field (EMT or ambulance) Qualified Code(s): R40.2421 - Warren coma scale score 9-12, in the field [EMT or ambulance] (7) Anemia Qualifiers: Anemia type: unspecified type Qualified Code(s): D64.9 - Anemia, unspecified <Leslie Perez T - Last Filed: 12/14/17 11:30> (1) Altered mental status Qualifiers: Altered mental status type: coma Coma depth: Warren coma 9-12 Coma timing: in the field (EMT or ambulance) Qualified Code(s): R40.2421 - [place]o coma scale score 9-12, in the field [EMT or ambulance] (7) Anemia Qualifiers: Anemia type: unspecified type Qualified Code(s): D64.9 - Anemia, unspecified <Laureano Horn - Last Filed: 12/14/17 15:01> (1) Altered mental status Qualifiers: Altered mental status type: coma Coma depth: [place]o coma 9-12 Coma timing: in the field (EMT or ambulance) Qualified Code(s): R40.2421 - Warren coma scale score 9-12, in the field [EMT or ambulance] (7) Anemia Qualifiers: Anemia type: unspecified type Qualified Code(s): D64.9 - Anemia, unspecified
[2017-12-14] MEDS: Insulin NovoLOG Aspart Correctional Sugar Inj SQ SCH ×4 (11:07→20:22)
[2017-12-14 12:04] LABS: Hematocrit 33.4 % (39.0-51.0); Hemoglobin 11.2 gm/dL (13.0-17.0); Mean Corpuscular HGB Conc 33.6 % (32.0-36.0); Mean Corpuscular Hemoglobin 28.3 pg (27.0-34.0); Mean Corpuscular Volume 84.1 fL (80.0-100.0); Mean Platelet Volume 7.4 fL (7.0-11.0); Platelet Count 133 th/mm3 (150-450); Red Blood Count 3.97 mil/mm3 (4.50-5.90); Red Cell Distribution Width 15.8 % (11.6-17.2); White Blood Count 5.1 th/mm3 (4.0-11.0)
[2017-12-15 06:19] LABS: Hematocrit 30.6 % (39.0-51.0); Mean Corpuscular HGB Conc 32.6 % (32.0-36.0); Mean Corpuscular Hemoglobin 27.4 pg (27.0-34.0); Mean Corpuscular Volume 84.1 fL (80.0-100.0); Mean Platelet Volume 7.1 fL (7.0-11.0); Platelet Count 92 th/mm3 (150-450); Red Blood Count 3.64 mil/mm3 (4.50-5.90); Red Cell Distribution Width 15.8 % (11.6-17.2); White Blood Count 3.7 th/mm3 (4.0-11.0)
[2017-12-15] MEDS: Insulin NovoLOG Aspart Correctional Sugar Inj SQ SCH ×2 (07:59→11:47)
[2017-12-15] MEDS: Gabapentin 300 MG Capsule PO SCH ×2 (08:20→12:01)
--- NOTE | 2017-12-15 10:05 | P.PNFP ---
Subjective Interval history: No acute events overnight. Patient resting in bed. States that he wants to go home. States that his insurance will not pay for rehab and he would like to go home soon. His sister did bring his Suboxone yesterday. He states that he is tired of staying in the hospital. Discussed with patient about insurance possibly paying for inpatient [facility] rehab. Patient thinks that his insurance will deny it. Denies fevers, chest pain, shortness of breath, nausea vomiting, and abdominal pain. <Leslie Perez T - 12/15/17 10:12> Results - Labs Result diagrams: 12/15/17 06:00 12/13/17 03:05 <Laureano Horn - 12/15/17 14:02> Abnormal lab results 12/14/17 12/15/17 12/15/17 Range/Units 20:08 06:00 07:46 WBC 3.7 L (4.0-11.0) th/mm3 RBC 3.64 L (4.50-5.90) mil/mm3 Hgb 10.0 L (13.0-17.0) gm/dL Hct 30.6 L (39.0-51.0) % Plt Count 92 L D (150-450) th/mm3 POC Glucose 128 H 130 H (68-110) mg/dl Short CBC 12/15/17 Range/Units 06:00 WBC 3.7 L (4.0-11.0) th/mm3 Hgb 10.0 L (13.0-17.0) gm/dL Hct 30.6 L (39.0-51.0) % Plt Count 92 L D (150-450) th/mm3 <Laureano Horn - 12/15/17 14:02> Abnormal lab results 12/14/17 12/14/17 12/14/17 Range/Units 10:41 11:17 20:08 WBC (4.0-11.0) th/mm3 RBC 3.97 L (4.50-5.90) mil/mm3 Hgb 11.2 L (13.0-17.0) gm/dL Hct 33.4 L (39.0-51.0) % Plt Count 133 L D (150-450) th/mm3 POC Glucose 167 H 128 H (68-110) mg/dl 12/15/17 12/15/17 Range/Units 06:00 07:46 WBC 3.7 L (4.0-11.0) th/mm3 RBC 3.64 L (4.50-5.90) mil/mm3 Hgb 10.0 L (13.0-17.0) gm/dL Hct 30.6 L (39.0-51.0) % Plt Count 92 L D (150-450) th/mm3 POC Glucose 130 H (68-110) mg/dl Short CBC 12/14/17 12/15/17 Range/Units 10:41 06:00 WBC 5.1 3.7 L (4.0-11.0) th/mm3 Hgb 11.2 L 10.0 L (13.0-17.0) gm/dL Hct 33.4 L 30.6 L (39.0-51.0) % Plt Count 133 L D 92 L D (150-450) th/mm3 <Leslie Perez T - 12/15/17 10:05> Physical Exam Vital signs: Vital Signs 12/14/17 16:00 12/14/17 18:00 12/14/17 20:00 Temperature 98.2 F 99 F Pulse Rate 74 71 60 Respiratory Rate 18 15 Blood Pressure 99/55 L 93/53 L Pulse Oximetry 99 94 L 12/15/17 00:00 12/15/17 04:00 12/15/17 08:00 Temperature 98.8 F 97.4 F L 97.6 F Pulse Rate 62 61 63 Respiratory Rate 14 18 20 Blood Pressure 96/58 L 148/90 H 107/59 L Pulse Oximetry 98 94 L 97 12/15/17 12:00 12/15/17 13:01 Temperature 97.8 F Pulse Rate 60 Respiratory Rate 20 Blood Pressure 135/68 Pulse Oximetry 98 97 Intake & Output 12/14/17 12/15/17 12/15/17 18:59 06:59 18:59 Intake Total 1200 / 1200 420 / 420 Output Total 200 / 200 Balance 1200 / 1200 220 / 220 Weight 78.8 kg Intake: Oral 960 / 960 420 / 420 Oral Supplement 240 / 240 Output: Urine 200 / 200 Other: # Voids 5 4 Date of Last Bowel Movement 12/13/17 12/13/17 12/13/17 # Bowel Movements 0 1 <Heiland,Laureano K - 12/15/17 14:02> Vital Signs 12/14/17 12:00 12/14/17 16:00 12/14/17 18:00 Temperature 97.9 F 98.2 F Pulse Rate 67 74 71 Respiratory Rate 18 Blood Pressure 103/64 99/55 L Pulse Oximetry 96 99 12/14/17 20:00 12/15/17 00:00 12/15/17 04:00 Temperature 99 F 98.8 F 97.4 F L Pulse Rate 60 62 61 Respiratory Rate 15 14 18 Blood Pressure 93/53 L 96/58 L 148/90 H Pulse Oximetry 94 L 98 94 L Intake & Output 12/14/17 12/15/17 12/15/17 18:59 06:59 18:59 Intake Total 1200 / 1200 420 / 420 Output Total 200 / 200 Balance 1200 / 1200 220 / 220 Weight 78.8 kg Intake: Oral 960 / 960 420 / 420 Oral Supplement 240 / 240 Output: Urine 200 / 200 Other: # Voids 5 4 Date of Last Bowel Movement 12/13/17 12/13/17 12/13/17 # Bowel Movements 0 1 <Leslie Perez T - 12/15/17 10:05> Narrative: General: No acute distress Skin: Multiple abrasions to the head, healing well HEENT: Moist mucous membranes Cardiac: Regular rate and rhythm without murmur Pulmonary: Clear to auscultation bilaterally without increased work of breathing and with good aeration Abdomen: Soft, nontender, positive bowel sounds Extremities: 2+ pedal pulses bilaterally. No edema. 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 <Leslie Perez T - 12/15/17 10:12> Assessment and Plan - Assessment (1) Altered mental status Code(s): R41.82 - Altered mental status, unspecified Status: Acute (2) History of DVT (deep vein thrombosis) Code(s): Z86.718 - Personal history of other venous thrombosis and embolism Status: Acute (3) Presence of IVC filter Code(s): Z95.828 - Presence of other vascular implants and grafts Status: Acute (4) Cardiomyopathy Code(s): I42.9 - Cardiomyopathy, unspecified Status: Acute (5) Status post implantation of automatic cardioverter/defibrillator (AICD) Code(s): Z95.810 - Presence of automatic (implantable) cardiac defibrillator Status: Acute (6) Depressed Code(s): F32.9 - Major depressive disorder, single episode, unspecified Status : Acute (7) Anemia Code(s): D64.9 - Anemia, unspecified Status: Acute (8) Left parietal lobe lesion Code(s): G93.9 - Disorder of brain, unspecified Status: Acute (9) Afib Code(s): I48.91 - Unspecified atrial fibrillation Status: Acute (10) Substance dependence, daily use Code(s): F19.20 - Other psychoactive substance dependence, uncomplicated Status: Acute (11) Diabetes mellitus Code(s): E11.9 - Type 2 diabetes mellitus without complications Status: Acute <Laureano Horn K - 12/15/17 14:02> (1) Altered mental status Code(s): R41.82 - Altered mental status, unspecified Status: Acute (2) History of DVT (deep vein thrombosis) Code(s): Z86.718 - Personal history of other venous thrombosis and embolism Status: Acute (3) Presence of IVC filter Code(s): Z95.828 - Presence of other vascular implants and grafts Status: Acute (4) Cardiomyopathy Code(s): I42.9 - Cardiomyopathy, unspecified Status: Acute (5) Status post implantation of automatic cardioverter/defibrillator (AICD) Code(s): Z95.810 - Presence of automatic (implantable) cardiac defibrillator Status: Acute (6) Depressed Code(s): F32.9 - Major depressive disorder, single episode, unspecified Status : Acute (7) Anemia Code(s): D64.9 - Anemia, unspecified Status: Acute (8) Left parietal lobe lesion Code(s): G93.9 - Disorder of brain, unspecified Status: Acute (9) Afib Code(s): I48.91 - Unspecified atrial fibrillation Status: Acute (10) Substance dependence, daily use Code(s): F19.20 - Other psychoactive substance dependence, uncomplicated Status: Acute (11) Diabetes mellitus Code(s): E11.9 - Type 2 diabetes mellitus without complications Status: Acute <Leslie Perez - 12/15/17 10:07> - Assessment and Plan 57-year-old male with past medical history of diabetes, cardiomyopathy (EF known to be around 30%) s/p ACID placement, DVT with IVC filter place, hypertension, COPD, A. fib on Eliquis, history of substance abuse admitted for AMS after a fall. Altered mental status -Improved -Neurology cleared and signed off Anemia -Stable Cardiomyopathy -History of cardiomyopathy with EF known to be around 30% status post ACID placement on 11/22 -Use caution with fluids History of DVT -s/p IVC filter A.fib -Continue Eliquis 5mg PO BID Depression -Continue Duloxetine 20mg PO BID Diabetes: -Held home Metformin 500mg BID (patient not confident of dosing) -low dose sliding scale -hypoglycemia protocol in place Substance use -Patient on 1 film Buccal BID of suboxone, Ivyher Harrell patient's home prescription -Pain management physician, Dr. Sutton Diet: Diabetic diet Fluids: PO hydration is adequate vitals q4h, monitor I & Os, cardiac telemetry DVT ppx: Eliquis Disposition: OT at rehab. Spoke with case management this morning. State that patient might be here over the weekend. Patient was accepted to inpatient rehab however insurance has to agree to pay. Case management thinks that this will not happen until Sunday. <Leslie Perez T - 12/15/17 10:12> - Attending Attestation The exam, history, and the medical decision-making described in the above note were completed with the assistance of the resident physician. I reviewed and agree with the findings presented. I attest that I had a [id number] encounter with the patient on the same day, and personally performed and documented my assessment and findings in the medical record. Despite clear discussion yesterday with him that he would need to be here until Sunday for insurance approval of inpatient rehab, patient would like to leave today. He verbalized to me [id number] that he understands that we do not feel that it is his safest option and he is at risk of further fall injury and even . He also reports that he does think he took a xanax before this admission. he states that it was an accident and his mother often mixes up pills. I explained that he needs to clearly separate and label his pills and only take as prescribed and he verbalized that he would. We will look into what services he will have at home and at a minimum get wound care as his wound his appearing macerated superiorly today, bandage will be changed with wet to dry dressing once more before discharge. Discharge planning on Mr Calle took well over 30 minutes. <Laureano Horn - 12/15/17 14:02> <Leslie Perez T - Last Filed: 12/15/17 10:07> (1) Altered mental status Qualifiers: Altered mental status type: coma Coma depth: Warren coma 9-12 Coma timing: in the field (EMT or ambulance) Qualified Code(s): R40.2421 - Warren coma scale score 9-12, in the field [EMT or ambulance] (7) Anemia Qualifiers: Anemia type: unspecified type Qualified Code(s): D64.9 - Anemia, unspecified <Laureano Horn K - Last Filed: 12/15/17 14:02> (1) Altered mental status Qualifiers: Altered mental status type: coma Coma depth: Wallace coma 9-12 Coma timing: in the field (EMT or ambulance) Qualified Code(s): R40.2421 - Wallace coma scale score 9-12, in the field [EMT or ambulance] (7) Anemia Qualifiers: Anemia type: unspecified type Qualified Code(s): D64.9 - Anemia, unspecified <Leslie Perez - Last Filed: 12/15/17 10:07> (1) Altered mental status Qualifiers: Altered mental status type: coma Coma depth: Warren coma 9-12 Coma timing: in the field (EMT or ambulance) Qualified Code(s): R40.2421 - Warren coma scale score 9-12, in the field [EMT or ambulance] (7) Anemia Qualifiers: Anemia type: unspecified type Qualified Code(s): D64.9 - Anemia, unspecified <Laureano Horn - Last Filed: 12/15/17 14:02> (1) Altered mental status Qualifiers: Altered mental status type: coma Coma depth: Warren coma 9-12 Coma timing: in the field (EMT or ambulance) Qualified Code(s): R40.2421 - Wallace coma scale score 9-12, in the field [EMT or ambulance] (7) Anemia Qualifiers: Anemia type: unspecified type Qualified Code(s): D64.9 - Anemia, unspecified
[2017-12-15 10:49] VITALS: RESP 20; O2SAT 97
[2017-12-15] MEDS ORDERED: BUPRENORPHINE SL SCH (11:00)
[2017-12-15] MEDS ORDERED: NALOXONE SL SCH (11:00)
--- NOTE | 2017-12-15 13:22 | P.DCO ---
- Home Health Nursing Order: Medical education, Signs/symptoms of disease process, Wound care and dressing changes - Case Management Consult No - Certification I have seen patient Iggy Calle on 12/15/17. My clinical findings support the need for the requested home health care services because: Limited mobility due to disease progression, Deconditioned with increased weakness, Limited ability to care for self, High risk of falls I certify that my clinical findings support that this patient is homebound because: Unsteady gait/balance, Need for psychosocial assistance
[2017-12-15 13:41] VITALS: BP 135/68; TEMP 97.8
[2017-12-15 15:52] VITALS: PULSE 73
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
== END 2017-12-15 13:54 ==
LOC: NEPE 09:22 → NEDA 12:30 → HIMC 14:30 → N04 12-12 17:46
PROVIDERS: ADMIT Family Medicine; ATTEND Family Medicine
DX: Z79.01 Long term (current) use of anticoagulants; R29.6 Repeated falls; J44.9 Chronic obstructive pulmonary disease, unspecified; Z87.820 Personal history of traumatic brain injury; I25.10 Atherosclerotic heart disease of native coronary artery without angina pectoris; E11.9 Type 2 diabetes mellitus without complications; Z86.73 Personal history of transient ischemic attack (TIA), and cerebral infarction without residual deficits; F32.9 Major depressive disorder, single episode, unspecified; Z95.810 Presence of automatic (implantable) cardiac defibrillator; G93.40 Encephalopathy, unspecified; Z91.81 History of falling; F11.20 Opioid dependence, uncomplicated; J96.02 Acute respiratory failure with hypercapnia; I10 Essential (primary) hypertension; Z86.718 Personal history of other venous thrombosis and embolism; Z89.222 Acquired absence of left upper limb above elbow; I25.2 Old myocardial infarction; Z79.84 Long term (current) use of oral hypoglycemic drugs; J96.01 Acute respiratory failure with hypoxia; I48.91 Unspecified atrial fibrillation; G93.89 Other specified disorders of brain; I42.9 Cardiomyopathy, unspecified; D64.9 Anemia, unspecified; I95.9 Hypotension, unspecified